=== PATIENT | male | born 1940 | race Caucasian/White ===

== ENCOUNTER 2023-03-14 10:27 | Outpatient (AMB) | payer OTHER, SELFPAY ==
[2023-03-14 10:39] VITALS: BP 140/60; PULSE 65; O2SAT 96; BMI 29.0
--- NOTE | 2023-03-14 10:39 | MHC.PC.OV ---
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 Transferring care from Dr. José Miguel Case. Returning back to the state from [place] after 30 years.Medical records have been requested and have been received. Phlebotomist Lab Assistant Required: No Accompanied by: Self / Same As Patient Allergies No Known Allergies Allergy (Verified 03/14/23 10:51) Medication List - Last Reconciled 03/14/23 by Julián Umanzor PA-C cholecalciferol (vitamin D3) (Vitamin D3) 50 mcg PO DAILY dorzolamide-timolol 22.3-6.8 mg/mL 1 drp ophthalmic (eye) doxazosin 4 mg PO BEDTIME finasteride 5 mg PO DAILY irbesartan 150 mg PO DAILY latanoprost 0.005% 1 drp ophthalmic (eye) QPM mirtazapine 15 mg PO BEDTIME netarsudil-latanoprost 0.02-0.005 % (Rocklatan) drps ophthalmic (eye) pravastatin 20 mg PO DAILY Tobacco use date assessed: 03/14/23 Fall risk assessment: No Falls in past year Last assessed Fall Risk: 03/14/23 Dental Screening Dental Screen Date: 03/14/23 Did you have a dental visit in the last 12 months?: No Did you have a dental problem in the last 6 months where you did not have access to dental care?: No Was dental information given to patient?: No (Upper Dentures) HPI New patient-Requesting physical HPI Details Patient is an 83-year-old male here today for a new patient visit/ Annual physical. Patient previous PCP was at [place]. Recently moved here from [place]. Patient has a past medical history significant for hypertension, GLaucoma, ALESSANDRA hyperlipidemia, BPH, pulmonary emphysema, major depressive disorder. .. Hypertension: Blood pressure slightly elevated today in office, he believes is due to being a bit anxious coming into the office today. .. Glaucoma: following an hydroponics grower in on multiple drops for his glaucoma. .. COPD: Was a former smoker though quit 20 years ago. He reports he was a 30 pack year smoker. He denies any exacerbations or coughing fits. Does have some shortness of breath on exertion at times though relates this to his pain in his lower back when ambulating. .. Hyperlipidemia: Continues on pravastatin 20 mg without side effect. Will recheck fasting lipids to assure appropriate total cholesterol and LDL. .. Obstructive sleep apnea: Uses CPAP machine quite regularly. Does use mirtazapine at night to help him fall asleep. He generally does not have a diagnosis of depression. .. Lumbar spine pain(chronic)- has had chronic lumbar spine issues for the past several years. Does use a stand-up walker that significantly helps reduce his pain while ambulating. He reports he has done physical therapy and tried injections in the past though have not been helpful. He is satisfied with using stand-up walker. He is interested in handicap placard through the [facility] Vaccines: Up-to-date with pneumonia, COVID, flu vaccines, needs td. Colon cancer screening: reports he got a colon done at age 75 which was normal. t [facility] Medical History (Updated 03/14/23 @ 12:30 by Julián Umanzor PA-C) Skin cancer Hearing problem Hypertension Depression COPD (chronic obstructive pulmonary disease) Chronic back pain Social History Housing: Apartment Patient Tobacco Use Status: Former Tobacco user (years since quitting-37 years) Quit Date: 1986 Tobacco use type: Cigarette e-Cigarette/Vaping Use: Never Used service: Yes Current occupational status: retired Cognitive needs: No Hearing needs: Yes (hearing problems from both ears.) Vision needs: Yes Questionnaire PHQ-9 Over the last 2 weeks, how often have you been bothered by any of the following problems? 1. Little interest or pleasure in doing things: not at all 2. Feeling down, depressed, or hopeless: not at all 3. Trouble falling or staying asleep, or sleeping too much: not at all 4. Feeling tired or having little energy: not at all 5. Poor appetite or overeating: not at all 6. Feeling bad about yourself - or that you are a failure or have let yourself or your family down: not at all 7. Trouble concentrating on things, such as reading the newspaper or watching television: not at all 8. Moving or speaking so slowly that other people could have noticed. Or the opposite - being so fidgety or restless that you have been moving around a lot more than usual: not at all 9. Thoughts that you would be better off or of hurting yourself in some way: not at all Total score: 0 Depression Screening Interpretation: Negative Depression Screening Done: Yes [id number] - PHQ-9 Billing: Yes Source: Developed by Drs. Vinnie Hatch, Dai Buckley, Devan Malave and colleagues, with an educational reg from [employer]. Thrive Questionnaire Date Thrive assessed: 03/14/23 I am a: Patient What is your living situation today?: I have a steady place to live Within the past 12 months, did the food you bought not last and you didn't have the money to get more?: Never true Within the past 12 months, did you worry whether your food would run out before you got money to buy more?: Never true Do you have trouble paying for medicines?: No Do you have trouble getting transportation to medical appointments?: No Do you have trouble paying your heating and electricity bill?: No Do you have trouble taking care of your child, family member or friend?: No Do you have trouble with day-to-day activities such as bathing, preparing meals, shopping, managing finances, etc.?: No Are you currently unemployed and looking for a job?: No Are you interested in more education?: No Please select the resources that you would like help with: None AUDIT C Alcohol Use Questionnaire (AUDIT-C) 1. How often do you have a drink containing alcohol?: Never 3. How often do you have six or more drinks on one occasion?: Never Total Score: 0 QUINCY-7 AMB Questionnaire QUINCY-7 Date QUINCY - 7 assessed: 03/14/23 Feeling nervous, anxious, or on edge: 0 = Not at all Not being able to stop or control worryin = Not at all Worrying too much about different things: 0 = Not at all Trouble relaxin = Not at all Being so restless that it is hard to sit still: 0 = Not at all Becoming easily annoyed or irritable: 0 = Not at all Feeling afraid as if something awful might happen: 0 = Not at all Total QUINCY-7 score (0-4 normal; 5-9 mild; 10-14 moderate; 15-21 severe): 0 Source: Developed by Drs. Vinnie Hatch, Dai Buckley, Devan Malave and colleagues, with an educational reg from [employer]. QUINCY-7 Assessment Billing QUINCY-7 Assessment Tool: QUINCY-7 Assessment 03302 Review of Systems Const Denies body aches, Denies chills, Denies excessive sweating, Denies fatigue, Denies fever(s) and Denies headache(s) Eyes Denies blurry vision ENT Denies dysphagia, Denies vertigo, Denies dizziness, Denies headache(s), Denies hearing loss and Denies tinnitus Card Denies chest pain, Denies chest pain with activity, Denies syncope, Denies irregular heart rhythm and Denies dyspnea Resp Denies chest congestion, Denies cough, Denies hemoptysis, Denies dyspnea and Denies wheezing GI Denies abdominal pain, Denies melena, Denies hematochezia, Denies coffee ground emesis, Denies dysphagia, Denies diarrhea, Denies nausea and Denies vomiting Denies difficulty urinating, Denies dysuria, Denies urinary frequency, Denies urinary hesitancy and Denies urinary urgency Musc Denies arthralgias, Denies limited range of motion, Denies muscle cramps and Denies muscle weakness Skin/Breast Denies rash and Denies skin ulcer Neuro Denies Abnormal speech present, Denies confusion, Denies vertigo, Denies dizziness, Denies syncope, Denies headache(s), Denies memory loss and Denies seizure-like activity Psych Denies anxiety, Denies confusion, Denies depression, Denies memory loss, Denies panic attacks and Denies paranoia Endo Denies excessive sweating, Denies fatigue, Denies flushing, Denies polydipsia and Denies polyuria Aller/Immun Denies wheezing Physical exam (Primary Care) Vital Signs: Last Vital Signs Pulse 65 03/14/23 10:39 BP 140/60 H 03/14/23 10:39 Pulse Ox 96 03/14/23 10:39 Oxygen Delivery Method Room Air 03/14/23 10:39 BMI result Body Mass Index 29.0 Tobacco/Smoking Status: Tobacco use Status Tobacco use date assessed 03/14/23 03/14/23 10:46 Patient Tobacco Use Status Former Tobacco user 03/14/23 10:46 e-Cigarette/Vaping Use Never Used 03/14/23 10:46 PHQ-9: PHQ-9 Score PHQ-9: Total score 0 03/14/23 10:49 Depression Screening Interpretation: Negative Thrive Assessment: Date of Thrive Assessment Date Thrive assessed 03/14/23 03/14/23 10:46 Const General: cooperative, comfortable, no acute distress, alert and awake; No confusion Orientation/consciousness: oriented to person, oriented to place, patient oriented x3 and No confusion HENMT Head: Yes normocephalic Ears: external ears normal and TM's normal bilaterally Face and sinus: No sinus tenderness Mouth: Normal oral and palatal mucosa present and tongue normal Teeth and gingiva: dentition normal and gingiva normal Throat: Yes posterior oropharynx normal, Yes tonsils normal and Yes uvula midline Eyes Conjunctivae: conjunctivae normal Sclerae: sclerae normal Pupils: Equal, round and reactive pupils present EOM: EOMs intact bilaterally Direct Ophthalmoscopy: No no photophobia Neck Neck: Yes no lymphadenopathy, No tender and Yes no JVD Thyroid: Thyroid normal Carotids: no bruits Chest Chest palpation & inspection: no tenderness Resp Effort & Inspection: normal respiratory effort, no audible wheezes, not labored and no stridor Auscultation: no crackles, no rales, no rhonchi and no wheezes Cardio Jugular venous distension: no JVD Rate: regular rate, not bradycardic and not tachycardic Rhythm: regular rhythm Bruits: no carotid bruits Peripheral pulses: Peripheral pulses 2+ throughout GI Inspection: Yes normal to inspection, No abdominal wall ecchymosis and No visible herniation Palpation (GI): Soft to palpation, nontender, no guarding, not rigid and No hepatosplenomegaly present Auscultation: normoactive bowel sounds General: Yes no CVA tenderness Back/Spine/Pelvis Back: no CVA tenderness and No back tenderness Cervical Spine: cervical ROM normal Thoracic/Lumbar Spine: thoracic and lumbar spine normal to inspection, straight leg raise negative bilaterally, No thoraco-lumbar ROM limited and No lumbar spinal tenderness Skin Lesions: no lesions Rashes: no rashes Wounds: no wounds Neuro General: oriented to person, oriented to place, patient oriented x3, CN's II-XI intact bilaterally and No confusion Cranial nerves: Yes Equal, round and reactive pupils present and Yes Normal accommodation reflex present Cognition (Neuro): normal cognition Speech: No Abnormal speech present Gait exam (Neuro): Normal gait present Motor exam (neuro): 5/5 motor strength present throughout Extrem Right upper extremity: full ROM; no cyanosis Left upper extremity: full ROM; no cyanosis Right lower extremity: no edema Left lower extremity: no edema Psych Appearance: grossly normal Mental Status: mental status grossly normal Affect: normal affect Attitude: cooperative Thought process: Normal thought process present Assessment and Plan Assessment & Plan (1) Annual physical exam: Code(s): Z00.00 - Encounter for general adult medical examination without abnormal findings (2) HLD (hyperlipidemia): Code(s): E78.5 - Hyperlipidemia, unspecified Qualifiers: Hyperlipidemia type: mixed hyperlipidemia Qualified Code(s): E78.2 - Mixed hyperlipidemia Plan: Will follow fasting lipid panel. Goal LDL to remain below 130. (3) BPH (benign prostatic hyperplasia): Code(s): N40.0 - Benign prostatic hyperplasia without lower urinary tract symptoms Qualifiers: Lower urinary tract symptom detail: unspecified Lower urinary tract symptom presence: symptoms present Qualified Code(s): N40.1 - Benign prostatic hyperplasia with lower urinary tract symptoms Plan: Does have some weak urinary stream. Does have family history of prostate cancer. Will check PSA regularly. (4) Glaucoma: Code(s): H40.9 - Unspecified glaucoma Qualifiers: Glaucoma type: unspecified Laterality: bilateral Qualified Code(s): H40.9 - Unspecified glaucoma Plan: Does follow an hydroponics grower and is on regular eyedrops. He does report since moving up from [place] he has bilateral eye blurriness and irritation. He believes he has something called dry eye . He will ask his hydroponics grower about this. (5) COPD (chronic obstructive pulmonary disease): Code(s): J44.9 - Chronic obstructive pulmonary disease, unspecified Qualifiers: COPD type: emphysema Emphysema type: centrilobular Qualified Code(s): J43.2 - Centrilobular emphysema Plan: Was a former smoker. Does not use any inhalers at this time. (6) Hypertension: Code(s): I10 - Essential (primary) hypertension Qualifiers: Hypertension type: primary hypertension Qualified Code(s): I10 - Essential (primary) hypertension Plan: Patient's blood pressure slightly elevated today in office. Advised to continue monitoring blood pressure at home and if consistently above 140/90 will consider adding hydrochlorothiazide to his blood pressure med regime. (7) Lumbar disc disease: Code(s): M51.9 - Unspecified thoracic, thoracolumbar and lumbosacral intervertebral disc disorder Plan: As per HPI has a chronic history of lumbar disc disease and arthritis. Does use a stand-up walker to help assist him in ambulation. He has not interested in further evaluation or treatment of his lumbar spine disease. (8) ALESSANDRA (obstructive sleep apnea): Code(s): G47.33 - Obstructive sleep apnea (adult) (pediatric) Plan: Was diagnosed with obstructive sleep apnea 60 years ago. Regularly uses a CPAP machine though somewhat bothered by the mass. He wonders if he can get off using his CPAP machine as he has lost significant amount of weight since his original diagnosis with obstructive sleep apnea. Orders: Orders Prostate Specific Antigen Scr Today N40.1 - Benign prostatic hyperplasia with lower urinary tract symptoms, Z12.5 - Encounter for screening for malignant neoplasm of prostate Comprehensive [place]. Panel Fast Today I10 - Essential (primary) hypertension Microalbumin, Random (w Creat) Today I10 - Essential (primary) hypertension Lipid Panel Today E78.2 - Mixed hyperlipidemia Coding Level of Care Code New Pt Prev Care >65yr (36628) Diagnoses Annual physical exam Z00.00 Mixed hyperlipidemia E78.2 Hyperlipidemia type: mixed hyperlipidemia Benign prostatic hyperplasia with lower urinary tract symptoms, symptom details unspecified N40.1 Lower urinary tract symptom detail: unspecified Lower urinary tract symptom presence: symptoms present Glaucoma of both eyes, unspecified glaucoma type H40.9 Glaucoma type: unspecified Laterality: bilateral Centrilobular emphysema J43.2 COPD type: emphysema Emphysema type: centrilobular Primary hypertension I10 Hypertension type: primary hypertension Lumbar disc disease M51.9 ALESSANDRA (obstructive sleep apnea) G47.33 Additional Codes QUINCY-7 Assessment Billing - QUINCY-7 Assessment Tool: QUINCY-7 Assessment [id number] ([id number])
== END 2023-03-14 11:33 | disposition home or self-care (01) ==
PROVIDERS: PCP Physician Assistant; Visit Provider Physician Assistant
DX: Z00.00 Encounter for general adult medical examination without abnormal findings (principal); J43.2 Centrilobular emphysema; E78.2 Mixed hyperlipidemia; N40.1 Benign prostatic hyperplasia with lower urinary tract symptoms; H40.9 Unspecified glaucoma; I10 Essential (primary) hypertension; M51.9 Unspecified thoracic, thoracolumbar and lumbosacral intervertebral disc disorder; G47.33 Obstructive sleep apnea (adult) (pediatric)
CPT/HCPCS: 99387

== ENCOUNTER 2023-07-03 06:22 | Outpatient (REF) | payer OTHER, SELFPAY ==
[2023-07-03 08:27] LABS: Alanine Aminotransferase 15 U/L (0-40); Albumin Level 3.6 g/dL (3.5-5.0); Alkaline Phosphatase 97 U/L (39-117); Anion Gap 12 (12-20); Aspartate Amino Transferase 23 U/L (5-37); Bilirubin Total 0.5 mg/dL (0.0-1.0); Blood Urea Nitrogen 24 mg/dL (9-16); Calcium 9.6 mg/dL (8.4-10.2); Carbon Dioxide 26 mmol/L (22-29); Chloride 110 mmol/L (96-108); Cholesterol 105 mg/dL (<200); Estimated Glomerular Filt Rate > 60; Glucose Fasting 92 mg/dL (60-99); HDL Cholesterol 42 mg/dL (>40); LDL Cholesterol Calculated 52 mg/dL (<100); Potassium 3.8 mmol/L (3.3-5.1); Sodium 144 mmol/L (135-145); Total Protein 6.3 g/dL (6.5-8.0); Triglycerides 57 mg/dL (<150)
[2023-07-03 08:40] LABS: Prostate Specific Antigen Scr 0.91 ng/mL (<0.05-4.0)
[2023-07-03 09:01] LABS: Creatinine Urine 75.18 mg/dL; Microalbumin Urine < 5.0 mg/L
== END 2023-07-03 06:23 | disposition home or self-care (01) ==
LOC: HO.LAB 06:22
PROVIDERS: PCP Physician Assistant; Visit Provider Physician Assistant
DX: Z12.5 Encounter for screening for malignant neoplasm of prostate (principal); N40.1 Benign prostatic hyperplasia with lower urinary tract symptoms; I10 Essential (primary) hypertension; E78.2 Mixed hyperlipidemia
CPT/HCPCS: 36415; 80053; 80061; 82043; 82570; 84153

== ENCOUNTER 2023-07-13 09:33 | Outpatient (AMB) | payer OTHER, SELFPAY ==
[2023-07-13 09:49] VITALS: BP 140/64; PULSE 55; O2SAT 96; BMI 27.0
--- NOTE | 2023-07-13 09:49 | MHC.PC.OV ---
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 Accompanied by: Self / Same As Patient Allergies No Known Allergies Allergy (Verified 07/13/23 10:06) Medication List - Last Reconciled 07/13/23 by Julián Umanzor PA-C cholecalciferol (vitamin D3) (Vitamin D3) 50 mcg PO DAILY dorzolamide-timolol 22.3-6.8 mg/mL 1 drp ophthalmic (eye) doxazosin 4 mg PO BEDTIME finasteride 5 mg PO DAILY irbesartan 150 mg PO DAILY latanoprost 0.005% 1 drp ophthalmic (eye) QPM mirtazapine 15 mg PO BEDTIME netarsudil-latanoprost 0.02-0.005 % (Rocklatan) drps ophthalmic (eye) pravastatin 20 mg PO DAILY Tobacco use date assessed: 03/14/23 Fall risk assessment: No Falls in past year Last assessed Fall Risk: 07/13/23 Dental Screening Dental Screen Date: 03/14/23 HPI f/u HTN/ ALESSANDRA/ HPI Details Patient is an 83-year-old male here today for a follow-up visit. Patient previous PCP was at [facility]. . Patient has a past medical history significant for hypertension, GLaucoma, ALESSANDRA hyperlipidemia, BPH, pulmonary emphysema, major depressive disorder. Has lost another 12 lb since last office visit intentionally via dietary modifications. .. Hypertension: Blood pressure slightly elevated today in office, he believes is due to being a bit anxious coming into the office today. .. Glaucoma: following an correctional food service supervisor in on multiple drops for his glaucoma. .. COPD: Was a former smoker though quit 20 years ago. He reports he was a 30 pack year smoker. He denies any exacerbations or coughing fits. Does have some shortness of breath on exertion at times though relates this to his pain in his lower back when ambulating. .. Hyperlipidemia: Continues on pravastatin 20 mg without side effect. Will recheck fasting lipids to assure appropriate total cholesterol and LDL. .. Obstructive sleep apnea: Uses CPAP machine quite regularly. Does use mirtazapine at night to help him fall asleep. He generally does not have a diagnosis of depression. .. Lumbar spine pain(chronic)- has had chronic lumbar spine issues for the past several years. Does use a stand-up walker that significantly helps reduce his pain while ambulating. He reports he has done physical therapy and tried injections in the past though have not been helpful. He is satisfied with using stand-up walker. He is interested in handicap placard through the [facility]. Laboratory Tests 07/03/23 07/03/23 06:39 07:21 Creatinine 0.87 Cholesterol 105 PSA Screen 0.91 Urine Microalbumin < 5.0 PFS Medical History (Updated 03/14/23 @ 12:30 by Julián Umanzor PA-C) Skin cancer Hearing problem Hypertension Depression COPD (chronic obstructive pulmonary disease) Chronic back pain Social History Housing: Apartment Patient Tobacco Use Status: Former Tobacco user (years since quitting-37 years) Quit Date: 1986 Tobacco use type: Cigarette e-Cigarette/Vaping Use: Never Used service: Yes Current occupational status: retired Cognitive needs: No Hearing needs: Yes (hearing problems from both ears.) Vision needs: Yes Questionnaire Thrive Questionnaire Date Thrive assessed: 03/14/23 QUINCY-7 AMB Questionnaire QUINCY-7 Date QUINCY - 7 assessed: 03/14/23 Source: Developed by Drs. Vinnie Hatch, Dai Buckley, Devan Malave and colleagues, with an educational reg from [employer]. Review of Systems Const Denies headache(s) Eyes Denies loss of vision ENT Denies vertigo, Denies dizziness, Denies headache(s) and Denies sore throat Card Denies chest pain, Denies leg edema and Denies lightheadedness Resp Denies cough, Denies hemoptysis and Denies wheezing GI Denies abdominal pain, Denies melena, Denies constipation, Denies diarrhea and Denies vomiting Denies dysuria, Denies urinary frequency and Denies urinary urgency Musc Denies arthralgias, Denies joint swelling, Denies numbness and Denies tingling Neuro Denies Abnormal speech present, Denies behavioral changes, Denies vertigo, Denies dizziness, Denies headache(s), Denies loss of vision, Denies memory loss, Denies numbness and Denies tingling Psych Denies anxiety, Denies behavioral changes, Denies depression, Denies memory loss and Denies panic attacks Mannie/Lymph Denies easy bleeding and Denies easy bruising Aller/Immun Denies wheezing Physical exam (Primary Care) Vital Signs: Last Vital Signs Pulse 55 07/13/23 09:49 BP 140/64 H 07/13/23 09:49 Pulse Ox 96 07/13/23 09:49 Oxygen Delivery Method Room Air 07/13/23 09:49 BMI result Body Mass Index 27.0 Tobacco/Smoking Status: Tobacco use Status Tobacco use date assessed 03/14/23 07/13/23 09:49 Patient Tobacco Use Status Former Tobacco user (years 07/13/23 09:49 since quitting-37 years) Tobacco use type Cigarette 07/13/23 09:49 e-Cigarette/Vaping Use Never Used 07/13/23 09:49 Thrive Assessment: Date of Thrive Assessment Date Thrive assessed 03/14/23 07/13/23 09:49 Const General: healthy appearing, no acute distress, alert and awake Nutritional Appearance: well nourished Orientation/consciousness: oriented to person, oriented to place and oriented to time HENMT Ears: TM's normal bilaterally General nose exam: Normal nasal mucous membranes and turbinates present Eyes Conjunctivae: conjunctivae normal Sclerae: sclerae normal Pupils: Equal, round and reactive pupils present Neck Neck: Yes no lymphadenopathy and Yes no JVD Thyroid: Thyroid normal Carotids: no bruits Resp Effort & Inspection: normal respiratory effort and not tachypneic Auscultation: no crackles, no rales, no rhonchi and no wheezes Cardio Rate: regular rate Rhythm: regular rhythm Heart sounds: no murmurs and normal S1 and S2 GI Palpation (GI): Soft to palpation, nontender, no hepatomegaly and no splenomegaly Auscultation: normal bowel sounds Skin General skin exam: no rashes or lesions noted and dry skin Neuro General: oriented to person, oriented to place and oriented to time Cranial nerves: Yes Equal, round and reactive pupils present Speech: No Abnormal speech present Gait exam (Neuro): Normal gait present Motor exam (neuro): no tremor noted Extrem Right upper extremity: full ROM Left upper extremity: full ROM Right lower extremity: full ROM; no edema Left lower extremity: full ROM; no edema Psych Mental Status: mental status grossly normal Speech and movement: Normal speech and movement present Affect: normal affect Attitude: cooperative Thought process: Normal thought process present Assessment and Plan Assessment & Plan (1) HLD (hyperlipidemia): Code(s): E78.5 - Hyperlipidemia, unspecified Qualifiers: Hyperlipidemia type: mixed hyperlipidemia Qualified Code(s): E78.2 - Mixed hyperlipidemia Plan: Most recent fasting lipid panel showing excellent control with total cholesterol and LDL. Goal LDL to remain below 130. (2) Hypertension: Code(s): I10 - Essential (primary) hypertension Qualifiers: Hypertension type: primary hypertension Qualified Code(s): I10 - Essential (primary) hypertension Plan: Patient's blood pressure slightly elevated today in office. Advised to continue monitoring blood pressure at home and if consistently above 140/90 will consider adding hydrochlorothiazide to his blood pressure med regime. (3) BPH (benign prostatic hyperplasia): Code(s): N40.0 - Benign prostatic hyperplasia without lower urinary tract symptoms Qualifiers: Lower urinary tract symptom detail: unspecified Lower urinary tract symptom presence: symptoms present Qualified Code(s): N40.1 - Benign prostatic hyperplasia with lower urinary tract symptoms Plan: Does have some weak urinary stream. Most recent PSA normal.. Does have family history of prostate cancer. Will check PSA regularly. (4) Glaucoma: Code(s): H40.9 - Unspecified glaucoma Qualifiers: Glaucoma type: unspecified Laterality: bilateral Qualified Code(s): H40.9 - Unspecified glaucoma Plan: Does follow an correctional food service supervisor and is on regular eyedrops. He does report since moving up from [place] he has bilateral eye blurriness and irritation. He believes he has something called dry eye . He has establish care with an correctional food service supervisor here in [place]. (5) COPD (chronic obstructive pulmonary disease): Code(s): J44.9 - Chronic obstructive pulmonary disease, unspecified Qualifiers: COPD type: emphysema Emphysema type: centrilobular Qualified Code(s): J43.2 - Centrilobular emphysema Plan: Was a former smoker. Does not use any inhalers at this time. Does not report any shortness a breath or cough. 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 Does use a stand-up walker to help assist him in ambulation. He has not interested in further evaluation or treatment of his lumbar spine disease. (7) ALESSANDRA (obstructive sleep apnea): Code(s): G47.33 - Obstructive sleep apnea (adult) (pediatric) Plan: Was diagnosed with obstructive sleep apnea 60 years ago. Regularly uses a CPAP machine though somewhat bothered by the mass. He wonders if he can get off using his CPAP machine as he has lost significant amount of weight since his original diagnosis with obstructive sleep apnea. He will call in August of 2023 for repeat sleep study to see if he still has the diagnosis of obstructive sleep apnea. Orders: Orders Complete Blood Count no Diff 6 Months J43.2 - Centrilobular emphysema Comprehensive [place]. Panel Fast 6 Months I10 - Essential (primary) hypertension Lipid Panel 6 Months E78.2 - Mixed hyperlipidemia Medications: Changed From doxazosin 4 mg PO BEDTIME N40.1 - Benign prostatic hyperplasia with lower urinary tract symptoms To doxazosin 4 mg PO BEDTIME 90 tabs 1RF 90 days N40.1 - Benign prostatic hyperplasia with lower urinary tract symptoms From finasteride 5 mg PO DAILY N40.1 - Benign prostatic hyperplasia with lower urinary tract symptoms To finasteride 5 mg PO DAILY 90 tabs 1RF 90 days N40.1 - Benign prostatic hyperplasia with lower urinary tract symptoms From irbesartan 150 mg PO DAILY I10 - Essential (primary) hypertension To irbesartan 150 mg PO DAILY 90 tabs 1RF 90 days I10 - Essential (primary) hypertension From mirtazapine 15 mg PO BEDTIME G47.33 - Obstructive sleep apnea (adult) (pediatric) To mirtazapine 15 mg PO BEDTIME 90 tabs 1RF 90 days G47.33 - Obstructive sleep apnea (adult) (pediatric) From cholecalciferol (vitamin D3) (Vitamin D3) 50 mcg PO DAILY J43.2 - Centrilobular emphysema To cholecalciferol (vitamin D3) (Vitamin D3) 50 mcg PO DAILY 90 tabs 1RF 90 days J43.2 - Centrilobular emphysema Refilled pravastatin 20 mg PO DAILY 90 tabs 1RF E78.2 - Mixed hyperlipidemia Patient Instructions: Goal: Blood pressure to remain below 140/90, LDL goal to be below 130 Barriers: Adherence to physical activity Coding Level of Care Code Est Pt Level 4 (03482) Diagnoses Mixed hyperlipidemia E78.2 Hyperlipidemia type: mixed hyperlipidemia Primary hypertension I10 Hypertension type: primary hypertension Benign prostatic hyperplasia with lower urinary tract symptoms, symptom details unspecified N40.1 Lower urinary tract symptom detail: unspecified Lower urinary tract symptom presence: symptoms present Glaucoma of both eyes, unspecified glaucoma type H40.9 Glaucoma type: unspecified Laterality: bilateral Centrilobular emphysema J43.2 COPD type: emphysema Emphysema type: centrilobular Lumbar disc disease M51.9 ALESSANDRA (obstructive sleep apnea) G47.33
== END 2023-07-13 10:21 | disposition home or self-care (01) ==
PROVIDERS: PCP Physician Assistant; Visit Provider Physician Assistant
DX: E78.2 Mixed hyperlipidemia (principal); J43.2 Centrilobular emphysema; I10 Essential (primary) hypertension; N40.1 Benign prostatic hyperplasia with lower urinary tract symptoms; H40.9 Unspecified glaucoma; M51.9 Unspecified thoracic, thoracolumbar and lumbosacral intervertebral disc disorder; G47.33 Obstructive sleep apnea (adult) (pediatric)
CPT/HCPCS: 99214

== ENCOUNTER 2024-01-09 06:02 | Outpatient (REF) | payer OTHER, SELFPAY ==
[2024-01-09 07:06] LABS: Hematocrit 39.8 % (42.0-52.0); Hemoglobin 12.9 g/dl (14.0-18.0); Mean Corpuscular HGB Conc 32.4 g/dl (31.0-36.0); Mean Corpuscular Hemoglobin 31.1 pg (27.0-33.0); Mean Corpuscular Volume 95.9 fL (80.0-98.0); Mean Platelet Volume 11.1 fL (9.4-12.4); Platelet Count 135 X10*3/uL (160-400); Red Blood Count 4.15 X10*6/uL (4.60-5.80); Red Cell Distribution Width 14.5 % (11.0-16.0); White Blood Count 5.3 X10*3/uL (4.8-10.8)
[2024-01-09 07:35] LABS: Alanine Aminotransferase 20 U/L (0-40); Albumin Level 3.5 g/dL (3.5-5.0); Alkaline Phosphatase 108 U/L (39-117); Anion Gap 10 (12-20); Aspartate Amino Transferase 33 U/L (5-37); Bilirubin Total 0.5 mg/dL (0.0-1.0); Blood Urea Nitrogen 31 mg/dL (9-16); Calcium 8.6 mg/dL (8.4-10.2); Carbon Dioxide 25 mmol/L (22-29); Chloride 111 mmol/L (96-108); Cholesterol 115 mg/dL (<200); Estimated Glomerular Filt Rate > 60; Glucose Fasting 93 mg/dL (60-99); HDL Cholesterol 50 mg/dL (>40); LDL Cholesterol Calculated 56 mg/dL (<100); Potassium 4.1 mmol/L (3.3-5.1); Sodium 142 mmol/L (135-145); Total Protein 6.5 g/dL (6.5-8.0); Triglycerides 49 mg/dL (<150)
== END 2024-01-09 06:03 | disposition home or self-care (01) ==
LOC: HO.LAB 06:02
PROVIDERS: PCP Physician Assistant; Visit Provider Physician Assistant
DX: J43.2 Centrilobular emphysema (principal); I10 Essential (primary) hypertension; E78.2 Mixed hyperlipidemia
CPT/HCPCS: 36415; 80053; 80061; 85027

== ENCOUNTER 2024-01-15 10:42 | Outpatient (AMB) | payer OTHER, SELFPAY ==
--- NOTE | 2024-01-15 10:47 | MHC.PC.OV ---
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: No Accompanied by: Self / Same As Patient Allergies No Known Allergies Allergy (Verified 01/15/24 10:55) Medication List - Last Reconciled 01/15/24 by Julián Umanzor PA-C cholecalciferol (vitamin D3) (Vitamin D3) 50 mcg PO DAILY 90 days dorzolamide-timolol 22.3-6.8 mg/mL 1 drp ophthalmic (eye) doxazosin 4 mg PO TID 90 days finasteride 5 mg PO DAILY 90 days irbesartan 150 mg PO DAILY 90 days latanoprost 0.005% 1 drp ophthalmic (eye) QPM mirtazapine 15 mg PO BEDTIME 90 days netarsudil-latanoprost 0.02-0.005 % (Rocklatan) drps ophthalmic (eye) pravastatin 20 mg PO DAILY Tobacco use date assessed: 03/14/23 Dental Screening Dental Screen Date: 03/14/23 HPI f/u HTN / HLD/ ALESSANDRA HPI Details Patient is an 83-year-old male here today for a follow-up visit. Patient previous PCP was at [facility]. . Patient has a past medical history significant for hypertension, GLaucoma, ALESSANDRA hyperlipidemia, BPH, pulmonary emphysema, major depressive disorder. Has lost more weight since last office visit intentionally. .. Hypertension: Blood pressure stable today in office, he believes is due to being a bit anxious coming into the office today. .. 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 .. COPD: Was a former smoker though quit 20 years ago. He reports he was a 30 pack year smoker. He denies any exacerbations or coughing fits. Does have some shortness of breath on exertion at times though relates this to his pain in his lower back when ambulating. .. Hyperlipidemia: Continues on pravastatin 20 mg without side effect. Will recheck fasting lipids to assure appropriate total cholesterol and LDL. .. Obstructive sleep apnea: Uses CPAP machine quite regularly. Does use mirtazapine at night to help him fall asleep. He generally does not have a diagnosis of depression. .. Lumbar spine pain(chronic)- has had chronic lumbar spine issues for the past several years. Does use a stand-up walker that significantly helps reduce his pain while ambulating. He reports he has done physical therapy and tried injections in the past though have not been helpful. He is satisfied with using stand-up walker. Laboratory Tests 01/09/24 06:16 RBC 4.15 L Hgb 12.9 L Creatinine 0.80 Cholesterol 115 LDL Cholesterol, C alc 56 [facility] Medical History (Updated 01/15/24 @ 11:05 by Julián Umanzor PA-C) Skin cancer Hearing problem Hypertension Depression COPD (chronic obstructive pulmonary disease) Chronic back pain Social History Housing: Apartment Patient Tobacco Use Status: Former Tobacco user (years since quitting-37 years) Tobacco use type: Cigarette e-Cigarette/Vaping Use: Never Used service: Yes Current occupational status: retired Cognitive needs: No Hearing needs: Yes (hearing problems from both ears.) Vision needs: Yes Questionnaire Thrive Questionnaire Date Thrive assessed: 03/14/23 QUINCY-7 AMB Questionnaire QUINCY-7 Date QUINCY - 7 assessed: 03/14/23 Source: Developed by Drs. Vinnie Hatch, Dai Buckley, Devan Malave and colleagues, with an educational reg from [employer]. Review of Systems Const Denies headache(s) Eyes Denies loss of vision ENT Denies vertigo, Denies dizziness, Denies headache(s) and Denies sore throat Card Denies chest pain, Denies leg edema and Denies lightheadedness Resp Denies cough, Denies hemoptysis and Denies wheezing GI Denies abdominal pain, Denies melena, Denies constipation, Denies diarrhea and Denies vomiting Denies dysuria, Denies urinary frequency and Denies urinary urgency Musc Denies arthralgias, Denies joint swelling, Denies numbness and Denies tingling Neuro Denies Abnormal speech present, Denies behavioral changes, Denies vertigo, Denies dizziness, Denies headache(s), Denies loss of vision, Denies memory loss, Denies numbness and Denies tingling Psych Denies anxiety, Denies behavioral changes, Denies depression, Denies memory loss and Denies panic attacks Mannie/Lymph Denies easy bleeding and Denies easy bruising Aller/Immun Denies wheezing Physical exam (Primary Care) Vital Signs: Last Vital Signs Pulse 74 01/15/24 10:52 BP 130/52 L 01/15/24 10:52 Pulse Ox 98 01/15/24 10:52 Oxygen Delivery Method Room Air 01/15/24 10:52 BMI result Body Mass Index 25.2 Tobacco/Smoking Status: Tobacco use Status Tobacco use date assessed 03/14/23 01/15/24 10:47 Patient Tobacco Use Status Former Tobacco user (years 01/15/24 10:47 since quitting-37 years) Tobacco use type Cigarette 01/15/24 10:47 e-Cigarette/Vaping Use Never Used 01/15/24 10:47 Thrive Assessment: Date of Thrive Assessment Date Thrive assessed 03/14/23 01/15/24 10:47 Const General: healthy appearing, no acute distress, alert and awake Nutritional Appearance: well nourished Orientation/consciousness: oriented to person, oriented to place and oriented to time HENMT Ears: TM's normal bilaterally General nose exam: Normal nasal mucous membranes and turbinates present Eyes Conjunctivae: conjunctivae normal Sclerae: sclerae normal Pupils: Equal, round and reactive pupils present Neck Neck: Yes no lymphadenopathy and Yes no JVD Thyroid: Thyroid normal Carotids: no bruits Resp Effort & Inspection: normal respiratory effort and not tachypneic Auscultation: no crackles, no rales, no rhonchi and no wheezes Cardio Rate: regular rate Rhythm: regular rhythm Heart sounds: no murmurs and normal S1 and S2 GI Palpation (GI): Soft to palpation, nontender, no hepatomegaly and no splenomegaly Auscultation: normal bowel sounds Skin General skin exam: no rashes or lesions noted and dry skin Neuro General: oriented to person, oriented to place and oriented to time Cranial nerves: Yes Equal, round and reactive pupils present Speech: No Abnormal speech present Gait exam (Neuro): Normal gait present Motor exam (neuro): no tremor noted Extrem Right upper extremity: full ROM Left upper extremity: full ROM Right lower extremity: full ROM; no edema Left lower extremity: full ROM; no edema Psych Mental Status: mental status grossly normal Speech and movement: Normal speech and movement present Affect: normal affect Attitude: cooperative Thought process: Normal thought process present Coding Level of Care Code Est Pt Level 4 (73066) Diagnoses Mixed hyperlipidemia E78.2 Hyperlipidemia type: mixed hyperlipidemia Lumbar disc disease M51.9 Centrilobular emphysema J43.2 COPD type: emphysema Emphysema type: centrilobular Primary hypertension I10 Hypertension type: primary hypertension Anemia, unspecified type D64.9 Anemia type: unspecified type Assessment & Plan Assessment & Plan (1) HLD (hyperlipidemia): Code(s): E78.5 - Hyperlipidemia, unspecified Category: Medical Qualifiers: Hyperlipidemia type: mixed hyperlipidemia Qualified Code(s): E78.2 - Mixed hyperlipidemia Plan: Patient's most recent lipid panel showing excellent control of his total cholesterol and LDL. Will continue current statin therapy with goal LDL to remain below 100 (2) Lumbar disc disease: Code(s): M51.9 - Unspecified thoracic, thoracolumbar and lumbosacral intervertebral disc disorder Category: Medical Plan: Patient continues to have pretty significant lower lumbar spine pain. Has had several back injections and surgeries in the past. He manages with a specialized walker which gives him the ability to be much more mobile. (3) COPD (chronic obstructive pulmonary disease): Code(s): J44.9 - Chronic obstructive pulmonary disease, unspecified Category: Medical Qualifiers: COPD type: emphysema Emphysema type: centrilobular Qualified Code(s): J43.2 - Centrilobular emphysema Plan: Patient's COPD Has been well controlled. Has not had to use any albuterol or maintenance inhalers. (4) Hypertension: Code(s): I10 - Essential (primary) hypertension Category: Medical Qualifiers: Hypertension type: primary hypertension Qualified Code(s): I10 - Essential (primary) hypertension Plan: Patient's blood pressure acceptable today in office. Will continue his current dose of irbesartan with goal blood pressure to remain below 140/90 (5) Anemia: Code(s): D64.9 - Anemia, unspecified Category: Medical Qualifiers: Anemia type: unspecified type Qualified Code(s): D64.9 - Anemia, unspecified Plan: Noted slight anemia most recent labs. Most likely anemia of chronic disease. Will continue to follow CBC. Orders: Orders Lipid Panel Today E78.2 - Mixed hyperlipidemia Prostate Specific Antigen Scr Today N40.1 - Benign prostatic hyperplasia with lower urinary tract symptoms, Z12.5 - Encounter for screening for malignant neoplasm of prostate Microalbumin, Random (w Creat) Today I10 - Essential (primary) hypertension Vitamin B12 and Folate Today D64.9 - Anemia, unspecified, E53.8 - Deficiency of other specified B group vitamins IRON PROFILE Today D50.9 - Iron deficiency anemia, unspecified, D64.9 - Anemia, unspecified Comprehensive [place]. Panel Fast Today I10 - Essential (primary) hypertension Complete Blood Count no Diff Today D64.9 - Anemia, unspecified Medications: Refilled cholecalciferol (vitamin D3) (Vitamin D3) 50 mcg PO DAILY 90 tabs 1RF 90 days J43.2 - Centrilobular emphysema pravastatin 20 mg PO DAILY 90 tabs 1RF E78.2 - Mixed hyperlipidemia finasteride 5 mg PO DAILY 90 tabs 1RF 90 days N40.1 - Benign prostatic hyperplasia with lower urinary tract symptoms
[2024-01-15 10:52] VITALS: BP 130/52; PULSE 74; O2SAT 98; BMI 25.2
== END 2024-01-15 11:19 | disposition home or self-care (01) ==
PROVIDERS: PCP Physician Assistant; Visit Provider Physician Assistant
DX: E78.2 Mixed hyperlipidemia (principal); M51.9 Unspecified thoracic, thoracolumbar and lumbosacral intervertebral disc disorder; J43.2 Centrilobular emphysema; I10 Essential (primary) hypertension; D64.9 Anemia, unspecified

== ENCOUNTER → 2024-01-15 10:42 | Outpatient (BNVA) | payer OTHER, SELFPAY | PROVIDERS: PCP Physician Assistant; Visit Provider Physician Assistant ==

== ENCOUNTER 2024-04-01 15:47 | Outpatient (AMB) | payer OTHER, SELFPAY ==
--- NOTE | 2024-04-01 16:03 | A.OFFPC_ITS ---
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 Required: No Accompanied by: Spouse Allergies No Known Allergies Allergy (Verified 04/03/24 09:20) Medication List - Last Reconciled 04/01/24 by MANISHA Lopez cholecalciferol (vitamin D3) (Vitamin D3) 50 mcg PO DAILY 90 days dorzolamide-timolol 22.3-6.8 mg/mL 1 drp ophthalmic (eye) doxazosin 4 mg PO TID 90 days finasteride 5 mg PO DAILY 90 days irbesartan 150 mg PO DAILY 90 days latanoprost 0.005% 1 drp ophthalmic (eye) QPM mirtazapine 15 mg PO BEDTIME 90 days netarsudil-latanoprost 0.02-0.005 % (Rocklatan) drps ophthalmic (eye) pravastatin 20 mg PO DAILY Tobacco use date assessed: 04/01/24 Fall risk assessment: No Falls in past year Last assessed Fall Risk: 04/01/24 Dental Screening Dental Screen Date: 04/01/24 Did you have a dental visit in the last 12 months?: No Did you have a dental problem in the last 6 months where you did not have access to dental care?: No Was dental information given to patient?: Patient has dentist HPI Hernia in groin HPI Details The patient is an 84-year-old male with significant past medical history of ALESSANDRA, COPD, glaucoma, hypertension, BPH, hyperlipidemia, anemia and lumbar disc disease He is a patient of [facility] The patient is presenting today with concern of a bulge in his right groin Patient reports that on Monday he was doing some heavy lifting without any issues But during Monday night he started having a lot of pain and noticed a small bulge in his right groin Reports that the bulge goes away and comes back intermittently Reports that the pain got worse this morning after lifting a clothes basket, then the pain got better again The patient denies abdominal pain. Denies any new urinary symptoms. He reports that he urinate often due to his swollen prostate but nothing new was noted In the standing position a small bulge was noted in his right groin, no scrotal swelling noted Attempted to have the patient lie down on exam table to check of the bulge was reducible, but due to the patient's chronic back pain he was not able to tolerate this -will order an abdominal ultrasound and refer the patient to general surgery [facility] Medical History (Updated 04/03/24 @ 09:49 by Dion Ratliff MD) Reducible right inguinal hernia Skin cancer Hearing problem Hypertension Depression COPD (chronic obstructive pulmonary disease) Chronic back pain Surgical History (Updated 04/19/24 @ 09:47 by Jacquie Barnett [facility]) History of right inguinal hernia repair (~04/05/24) Hx of wisdom tooth extraction Hx of colonoscopy No pertinent past surgical history Social History Housing: Apartment Patient Tobacco Use Status: Former Tobacco user Tobacco use type: Cigarette e-Cigarette/Vaping Use: Never Used service: Yes Current occupational status: retired Cognitive needs: No Hearing needs: Yes (hearing problems from both ears.) Vision needs: Yes Questionnaire PHQ-9 Over the last 2 weeks, how often have you been bothered by any of the following problems? 1. Little interest or pleasure in doing things: not at all 2. Feeling down, depressed, or hopeless: not at all 3. Trouble falling or staying asleep, or sleeping too much: not at all 4. Feeling tired or having little energy: not at all 5. Poor appetite or overeating: not at all 6. Feeling bad about yourself - or that you are a failure or have let yourself or your family down: not at all 7. Trouble concentrating on things, such as reading the newspaper or watching television: not at all 8. Moving or speaking so slowly that other people could have noticed. Or the opposite - being so fidgety or restless that you have been moving around a lot more than usual: not at all 9. Thoughts that you would be better off or of hurting yourself in some way: not at all Total score: 0 Depression Screening Interpretation: Negative Depression Screening Done: Yes 20566 - PHQ-9 Billing: Yes Source: Developed by Drs. Vinnie Hatch, Dai Buckley, Devan Malave and colleagues, with an educational reg from [employer]. Thrive Questionnaire Date Thrive assessed: 04/01/24 I am a: Patient What is your living situation today?: I have a steady place to live Within the past 12 months, did the food you bought not last and you didn't have the money to get more?: Never true Within the past 12 months, did you worry whether your food would run out before you got money to buy more?: Never true Do you have trouble paying for medicines?: No Do you have trouble getting transportation to medical appointments?: No Do you have trouble paying your heating and electricity bill?: No Do you have trouble taking care of your child, family member or friend?: No Do you have trouble with day-to-day activities such as bathing, preparing meals, shopping, managing finances, etc.?: No Are you currently unemployed and looking for a job?: No Are you interested in more education?: No Please select the resources that you would like help with: None Currently or been in a relationship where the following occur: No concerns reported THRIVE Score: 0 AUDIT C Alcohol Use Questionnaire (AUDIT-C) 1. How often do you have a drink containing alcohol?: Never Total Score: 0 QUINCY-7 AMB Questionnaire QUINCY-7 Date QUINCY - 7 assessed: 04/01/24 Feeling nervous, anxious, or on edge: 0 = Not at all Not being able to stop or control worryin = Not at all Worrying too much about different things: 0 = Not at all Trouble relaxin = Not at all Being so restless that it is hard to sit still: 0 = Not at all Becoming easily annoyed or irritable: 0 = Not at all Feeling afraid as if something awful might happen: 0 = Not at all Total QUINCY-7 score (0-4 normal; 5-9 mild; 10-14 moderate; 15-21 severe): 0 Source: Developed by Drs. Vinnie Hatch, Dai Buckley, Devan Malave and colleagues, with an educational reg from [employer]. QUINCY-7 Assessment Billing QUINCY-7 Assessment Tool: QUINCY-7 Assessment 28857 Review of Systems Const Details: Denies chills, Denies fatigue, Denies fever(s), Denies headache(s) and Denies weakness HEENT Denies change in vision, Denies dizziness, Denies headache(s), Denies hearing loss, Denies nasal congestion, Denies sinus pain, Denies sinus pressure and Denies sore throat Card Denies chest pain, Denies lightheadedness, Denies dyspnea and Denies other (palpitations) Resp Denies cough, Denies dyspnea and Denies wheezing GI Denies abdominal pain, Denies melena, Denies hematochezia, Denies change in bowel habits, Denies dyspepsia and Denies nausea Other: +Right groin bulging, + intermittent right groin pain Denies hematuria and Denies dysuria, + urinary frequency (chronic, enlarged prostate) Musc Denies abnormal gait, + lumbar pain (chronic), Denies numbness and Denies tingling Skin/Breast Denies rash, Denies unusual bruising and Denies wounds Neuro Denies abnormal gait, Denies dizziness, Denies headache(s), Denies memory loss, Denies numbness, Denies Sensory deficit (Neuro), Denies tingling and Denies weakness Psych Denies anxiety, Denies depression and Denies memory loss Endo Denies cold intolerance, Denies fatigue, Denies heat intolerance, Denies polydipsia Mannie/Lymph Denies easy bleeding and Denies easy bruising Aller/Immun Denies wheezing Physical exam (Primary Care) Vital Signs: Last Vital Signs Pulse 72 04/01/24 16:06 BP 120/70 04/01/24 16:06 Pulse Ox 96 04/01/24 16:06 Oxygen Delivery Method Room Air 04/01/24 16:06 BMI result Body Mass Index 25.3 Tobacco/Smoking Status: Tobacco use Status Tobacco use date assessed 04/01/24 04/01/24 16:10 Patient Tobacco Use Status Former Tobacco user (years 04/01/24 16:10 since quitting-37 years) Tobacco use type Cigarette 04/01/24 16:10 e-Cigarette/Vaping Use Never Used 04/01/24 16:10 PHQ-9: PHQ-9 Score PHQ-9: Total score 0 04/01/24 19:42 Depression Screening Interpretation: Negative Thrive Assessment: Date of Thrive Assessment Date Thrive assessed 04/01/24 04/01/24 16:10 Currently or been in a relationship where the following occur: No concerns reported Const Other: General: no acute distress, well developed, alert and awake Nutritional Appearance: well nourished Orientation/consciousness: patient oriented x3 HENMT Head: Yes normocephalic and Yes atraumatic Ears: hearing grossly normal bilaterally and TM's normal bilaterally General nose exam: Normal external nose present and Normal nares present Pupils: Equal, round and reactive pupils present and Pupil accommodation reflex normal EOM: EOMs intact bilaterally Neck Neck: Yes normal visual inspection, Yes no lymphadenopathy Thyroid: Thyroid normal Resp Effort & Inspection: normal respiratory effort Auscultation: clear to auscultation bilaterally Cardio Rate: regular rate Rhythm: regular rhythm Heart sounds: S1 normal heart sound present, S2 normal heart sound present, no gallops, no murmurs and no rubs GI Palpation (GI): Abdomen is soft and nontender to palpation Auscultation: normal bowel sounds Other: Small right groin bulging consistent with right inguinal hernia General: Yes no CVA tenderness Back/Spine/Pelvis Back: no CVA tenderness Cervical Spine: cervical ROM normal and No Cervical spine tenderness Thoracic/Lumbar Spine: Lumbar tenderness Skin General: warm and dry. Normal skin color. Normal skin turgor Lesions: no lesions Nails: normal Neuro General: patient oriented x3, gait normal Cranial nerves: Yes Equal, round and reactive pupils present Cognition (Neuro): normal cognition Gait exam (Neuro): Uses 2 canes to balance Extrem General: Yes normal to inspection, No edema and No calf tenderness Psych Appearance: grossly normal Affect: normal affect Attitude: cooperative Thought process: Normal thought process present Coding Level of Care Code Est Pt Level 4 (55740) Diagnoses Unilateral recurrent inguinal hernia without obstruction or gangrene K40.91 Laterality: unilateral Obstruction and gangrene presence: without obstruction or gangrene Recurrence: recurrent Lumbar disc disease M51.9 Benign prostatic hyperplasia with lower urinary tract symptoms, symptom details unspecified N40.1 Lower urinary tract symptom detail: unspecified Lower urinary tract symptom presence: symptoms present Additional Codes QUINCY-7 Assessment Billing - QUICNY-7 Assessment Tool: QUINCY-7 Assessment 43411 ([id number]) PHQ-9 - 71463 - PHQ-9 Billing: Yes ([id number]) Time Spent (min) 29 Assessment & Plan Assessment & Plan (1) Inguinal hernia: Code(s): K40.90 - Unilateral inguinal hernia, without obstruction or gangrene, not specified as recurrent Category: Medical Qualifiers: Laterality: unilateral Obstruction and gangrene presence: without obstruction or gangrene Recurrence: recurrent Qualified Code(s): K40.91 - Unilateral inguinal hernia, without obstruction or gangrene, recurrent Plan: Reports bulging in right groin started on Monday night. Reports intermittently resolving and reappearing Right groin bulging consistent with right inguinal hernia Abdominal ultrasound ordered and the patient was referred to General surgery Discussed with the patient and that if his pain becomes severe he should go to the emergency room to prevent strangulation of his intestine (2) Lumbar disc disease: Code(s): M51.9 - Unspecified thoracic, thoracolumbar and lumbosacral intervertebral disc disorder Category: Medical Plan: Chronic lumbar disc disease. He was unable to lay flat on table to try and reduce his hernia Patient reports that he sleeps in a recliner chair due to his chronic back pain and usually uses a walker to ambulate (3) BPH (benign prostatic hyperplasia): Code(s): N40.0 - Benign prostatic hyperplasia without lower urinary tract symptoms Category: Medical Qualifiers: Lower urinary tract symptom detail: unspecified Lower urinary tract symptom presence: symptoms present Qualified Code(s): N40.1 - Benign prostatic hyperplasia with lower urinary tract symptoms Plan: Reports urinary frequency, but also reports that this is not new and it is due to his enlarged prostate The patient is currently on doxazosin 4 mg t.i.d. and finasteride 5 mg daily Follow up with Urology as scheduled Plan To return as scheduled in June 2024 for his annual physical examination with his PCP Orders: Orders US abdomen complete 04/01/24 K40.90 - Unilateral inguinal hernia, without obstruction or gangrene, not specified as recurrent Referrals General Surgery Referral K40.90 - Unilateral inguinal hernia, without obstruction or gangrene, not specified as recurrent
[2024-04-01 16:06] VITALS: BP 120/70; PULSE 72; O2SAT 96; BMI 25.3
== END 2024-04-01 16:54 | disposition home or self-care (01) ==
PROVIDERS: PCP Physician Assistant
DX: K40.91 Unilateral inguinal hernia, without obstruction or gangrene, recurrent (principal); M51.9 Unspecified thoracic, thoracolumbar and lumbosacral intervertebral disc disorder; N40.1 Benign prostatic hyperplasia with lower urinary tract symptoms

== ENCOUNTER → 2024-04-01 15:47 | Outpatient (BNVA) | payer OTHER, SELFPAY | PROVIDERS: PCP Physician Assistant | DX: K40.91 Unilateral inguinal hernia, without obstruction or gangrene, recurrent (principal); M51.9 Unspecified thoracic, thoracolumbar and lumbosacral intervertebral disc disorder; N40.1 Benign prostatic hyperplasia with lower urinary tract symptoms; R35.0 Frequency of micturition; Z79.899 Other long term (current) drug therapy | CPT/HCPCS: 96127 ==

== ENCOUNTER 2024-04-01 23:38 | Emergency (ER) | payer OTHER, SELFPAY ==
--- NOTE | ~2024-04-01 | CT_ITS ---
CLINICAL HISTORY: inguinal pain, r o incarcerated hernia CT abdomen and pelvis without contrast Comparison: None Findings: Emphysema in the partially imaged lung bases. Pulmonary nodule in the right middle lobe is partially imaged measuring up to 4 mm. Given the background emphysema, follow-up CT can be performed for further screening of the remainder of the lungs if not recently performed. Fluid attenuation in the caudate lobe compatible with a benign cyst. Cholelithiasis without CT evidence of acute cholecystitis. Multiple hypodensities in the kidneys, the larger of which measure fluid attenuation and are compatible with cysts, the smaller of which are too small for accurate characterization. There is a 4 mm right lower pole nonobstructing renal calculus. 3 mm left lower pole nonobstructing renal calculus. No hydronephrosis or hydroureter. Normal urinary bladder. Smooth thickening of the bilateral adrenal glands. 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 As with all adenomas, consider biochemical testing if there is concern for hyperfunction. Probable small hiatal hernia. Stomach is predominantly collapsed which limits assessment. Small bowel is nondilated. Appendix is not visualized, no secondary signs to suggest acute appendicitis. Large stool burden. Colonic diverticula without diverticulitis. Coarse calcifications of the prostate which is enlarged with median lobe hypertrophy. No lymphadenopathy. No free fluid or free air. Atherosclerotic calcifications of the abdominal aorta. Leftward scoliosis of the spine. Multilevel degenerative changes. Background osteopenia. Bilateral fat containing inguinal hernias. There is a loop of colon which is adjacent to the right inguinal hernia opening although not within the hernia proper. IMPRESSION: 1. No incarcerated hernia as clinically questioned. Bilateral fat containing inguinal hernias. There is a loop of colon which is adjacent to the right inguinal hernia opening although not within the hernia proper. 2. Nonobstructing bilateral renal calculi. 3. Cholelithiasis without CT evidence of acute cholecystitis. 4. Emphysema in the partially imaged lung bases. Pulmonary nodule in the right middle lobe is partially imaged measuring up to 4 mm. Given the background emphysema, follow-up CT can be performed for further screening of the remainder of the lungs if not performed within the past year. 5. 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 As with all adenomas, consider biochemical testing if there is concern for hyperfunction. 6. Additional findings as described. This document has been electronically signed by: Carol Brown MD on 04/02/2024 05:56:56
[2024-04-02 00:22] VITALS: BP 148/48; PULSE 54; RESP 18; TEMP 36.7; O2SAT 98; BMI 24.1
[2024-04-02 01:48] LABS: MANUAL DIFF FLAG NO
--- NOTE | 2024-04-02 01:51 | PC.NURSE ---
pt a&ox4, respirations even and unlabored. pt reporting increased abdominal pain, reports he was diagnosed with a hernia, has been having trouble with moving and ambulation and reports he was told to come get seen if this were to happen. pt denies n.v.d. 18G placed in left ac, labs obtained and sent.
[2024-04-02 01:52] LABS: Basophils Percent Auto 0.5 % (0-2); Eosinophils Absolute Auto 0.2 X10*3/uL (0.0-0.4); Eosinophils Percent Auto 2.4 % (0-4); Hemoglobin 13.3 g/dl (14.0-18.0); Imm Gran Abs Auto 0.02 X10*3/uL (0.00-0.03); Imm Gran Pct Auto 0.3 % (0.0-0.4); Lymphocytes Absolute Auto 1.5 X10*3/uL (1.2-4.9); Lymphocytes Percent Auto 23.9 % (20-40); Mean Corpuscular HGB Conc 34.1 g/dl (31.0-36.0); Mean Corpuscular Hemoglobin 31.3 pg (27.0-33.0); Mean Corpuscular Volume 91.8 fL (80.0-98.0); Mean Platelet Volume 10.8 fL (9.4-12.4); Monocytes Absolute Auto 0.6 X10*3/uL (0.1-1.2); Monocytes Percent Auto 9.7 % (2-11); Neutrophils Absolute Auto 3.9 x10*3/uL (2.0-8.3); Neutrophils Percent Auto 63.2 % (45-73); Platelet Count 124 X10*3/uL (160-400); Red Blood Count 4.25 X10*6/uL (4.60-5.80); Red Cell Distribution Width 13.9 % (11.0-16.0); White Blood Count 6.2 X10*3/uL (4.8-10.8)
[2024-04-02 01:58] LABS: INTERNATIONAL NORM RATIO 1.1 (0.9-1.1)
[2024-04-02 02:06] LABS: Lactic Acid 0.8 mmol/L (0.5-2.0)
[2024-04-02 02:12] LABS: Alanine Aminotransferase 18 U/L (0-40); Albumin Level 3.7 g/dL (3.5-5.0); Anion Gap 12 (12-20); Aspartate Amino Transferase 33 U/L (5-37); Bilirubin Total 0.5 mg/dL (0.0-1.0); Blood Urea Nitrogen 31 mg/dL (9-16); Calcium 9.2 mg/dL (8.4-10.2); Carbon Dioxide 24 mmol/L (22-29); Chloride 111 mmol/L (96-108); Creatinine Clr Calc Pharmacy 56.9; Estimated Glomerular Filt Rate > 60; Glucose Random 95 mg/dL (60-115); Lipase 24 U/L (8-78); Potassium 4.2 mmol/L (3.3-5.1); Sodium 143 mmol/L (135-145); Total Protein 7.1 g/dL (6.5-8.0)
[2024-04-02 02:39] LABS: Alkaline Phosphatase 97 U/L (39-117)
--- NOTE | 2024-04-02 04:43 | ED_ITS ---
HPI - General Adult General Chief complaint: General Medical Stated complaint: hernia was at pcp today Time Seen by Provider: 04/02/24 04:34 Source: patient and family Mode of arrival: ambulatory Limitations: no limitations History of Present Illness ED Provider: Dr. Fernanda Mooney HPI narrative: Patient comes to the emergency room complaining of right inguinal pain. Patient states that about a week ago, he has been doing some heavy lifting with projects at home. Patient states that since then he has noticed some swelling and bulging in his right inguinal area. Patient states that it is on and off. Patient called his PCP, patient has been him appointments pending. However, approximately 10 hours ago, the pain became persistent and last for about 8 hours, patient states that at this time he feels much better. Related Data Home Medications ?Medication ?Instructions ?Recorded ?Confirmed dorzolamide 22.3 mg-timolol 6.8 1 drp ophthalmic (eye) 03/14/23 04/01/24 mg/mL eye drops latanoprost 0.005 % eye drops 1 drp ophthalmic (eye) QPM 03/14/23 04/01/24 netarsudil 0.02 %-latanoprost drp ophthalmic (eye) 03/14/23 04/01/24 0.005 % eye drops ([place]) Previous Rx's ?Medication ?Instructions ?Recorded cholecalciferol (vitamin D3) 50 50 mcg PO DAILY 90 days #90 tabs 01/15/24 mcg (2,000 unit) tablet (Vitamin D3) finasteride 5 mg tablet 5 mg PO DAILY 90 days #90 tabs 01/15/24 mirtazapine 15 mg tablet 15 mg PO BEDTIME 90 days #90 tabs 01/29/24 doxazosin 4 mg tablet 4 mg PO TID 90 days #270 tabs 03/05/24 pravastatin 20 mg tablet 20 mg PO DAILY #90 tabs 03/12/24 irbesartan 150 mg tablet 150 mg PO DAILY 90 days #90 tabs 03/25/24 Allergies Allergy/AdvReac Type Severity Reaction Status Date / Time No Known Allergies Allergy Verified 04/02/24 00:25 Review of Systems 2 Review of Systems: Constitutional : No Weight loss, No Fever, No Chills, No Night Sweats, No Fatigue, No Malaise ENT/Mouth : No Hearing loss, No Ear Pain, No Nasal Congestion, No Sinus Pain, No Hoarseness, No sore throat, No Rhinorrhea, No Swallowing Difficulty Eyes: No Eye Pain, No Swelling, No Redness, No Foreign Body, No Discharge, No Vision Changes Cardiovascular : No Chest Pain, No SOB, No Dyspnea on Exertion, No Orthopnea, No Edema, No Palpitations Respiratory : No Cough, No Sputum, No Wheezing, No Smoke Exposure, No Dyspnea Gastrointestinal : No Nausea, No Vomiting, No Diarrhea, No Constipation, No abdominal Pain, No Hematochezia, No Melena, complaining of inguinal area pain. Genitourinary : no irregular bleeding, No Dysuria, No Urinary Frequency, No Hematuria, No Urinary Incontinence, No Urgency, No Flank Pain, No Urinary Flow Changes, No Hesitancy Musculoskeletal : No joint pain, No Myalgias, No Joint Swelling Skin : No Skin Lesions, No rash Neuro : No Weakness, No Numbness, No Paresthesias, No Loss of Consciousness, No Dizziness, No Headache Psych : No Anxiety/Panic, No Depression, No SI/HI/AH/VH, No Social Issues, Heme/Lymph: No Bruising, No Bleeding,No Lymphadenopathy Endocrine : No Polyuria, No Polydipsia, No Temperature Intolerance PMFSH Past Medical History Medical History Skin cancer Hearing problem Hypertension Depression COPD (chronic obstructive pulmonary disease) Chronic back pain Surgical History No pertinent past surgical history Social History Social History Housing: Apartment Patient Tobacco Use Status: Former Tobacco user Tobacco use type: Cigarette Smoked in Last 30 Days: No e-Cigarette/Vaping Use: Never Used Use of substances other than those prescribed or required for medical reasons: No Advance Directives: No Advance Directives Information Provided: Yes service: Yes Current occupational status: retired Cognitive needs: No Hearing needs: Yes (hearing problems from both ears.) Vision needs: Yes Physical Exam ED Vital Signs: Vital Signs - 24 hr 04/02/24 00:22 04/02/24 05:35 Temperature 98.0 F 97.5 F Pulse Rate 54 54 Respiratory Rate 18 18 Blood Pressure 148/48 H 139/59 L Pulse Oximetry 98 97 Oxygen Delivery Method Room Air Room Air BMI result Body Mass Index 24.1 Const Other: Appearance: Alert. Oriented X3. No acute distress. Eyes: Pupils equal, round and reactive to light. ENT: Pharynx normal. Neck: Normal inspection. Neck supple. No lymph nodes noted. No crepitus CVS: Normal heart rate and rhythm. Pulses normal. Normal S1 and S2 Respiratory: No respiratory distress. Breath sounds normal. No Wheezing. No rales Abdomen: Soft and nontender. No rigidity. No distention. Skin: Skin warm and dry. Normal skin color. Normal skin turgor. Extremities: No lower extremity edema. No Lacerations. No Rash Neuro: Oriented X 3. No motor deficit. No sensory deficit. Moving all extremities. No slurred speech. CN 2 through 12 grossly intact Psych: calm, cooperative, normal affect My interpretation of labs: No significant abnormality in patient's hematology or chemistry CT scan does not show any incarcerated hernia. Patient asymptomatic at this time, no pain Patient to follow-up with surgery Medical Decision Making Medical Decision Making [facility] Narrative: CT scan does not show acute abnormality, normal labs, needs follow-up with surgery Patient is stable at this time, asymptomatic Lab Data [facility] Lab Attestation statement: I reviewed the patient's lab results. 04/02/24 01:44 04/02/24 01:44 Labs: Lab Results 04/02/24 04/02/24 Range/Units 01:44 05:41 WBC 6.2 (4.8-10.8) X10*3/uL RBC 4.25 L (4.60-5.80) X10*6/uL Hgb 13.3 L (14.0-18.0) g/dl Hct 39.0 L (42.0-52.0) % MCV 91.8 (80.0-98.0) fL MCH 31.3 (27.0-33.0) pg MCHC 34.1 (31.0-36.0) g/dl RDW 13.9 (11.0-16.0) % Plt Count 124 L (160-400) X10*3/uL MPV 10.8 (9.4-12.4) fL Immature Gran % (Auto) 0.3 (0.0-0.4) % Neut % (Auto) 63.2 (45-73) % Lymph % (Auto) 23.9 (20-40) % [place] % (Auto) 9.7 (2-11) % Eos % (Auto) 2.4 (0-4) % Baso % (Auto) 0.5 (0-2) % Lymph # (Auto) 1.5 (1.2-4.9) X10*3/uL [place] # (Auto) 0.6 (0.1-1.2) X10*3/uL Eos # (Auto) 0.2 (0.0-0.4) X10*3/uL Baso # (Auto) 0.0 (0.0-0.2) X10*3/uL Abs Immat Gran (auto) 0.02 (0.00-0.03) X10*3/uL Absolute Neuts (auto) 3.9 (2.0-8.3) x10*3/uL Absolute Nucleated RBC 0.000 (0.0-0.012) X10*3/uL Nucleated RBC % (auto) 0.0 (0.0-0.2) /100WBC PT 13.0 H (10.9-12.4) SEC INR 1.1 (0.9-1.1) Sodium 143 (135-145) mmol/L Potassium 4.2 (3.3-5.1) mmol/L Chloride 111 H (96-108) mmol/L Carbon Dioxide 24 (22-29) mmol/L Anion Gap 12 (12-20) BUN 31 H (9-16) mg/dL Creatinine 0.84 (0.5-1.4) mg/dL Estim Creat Clear Calc 56.9 Estimated GFR > 60 Random Glucose 95 (60-115) mg/dL Lactic Acid 0.8 (0.5-2.0) mmol/L Calcium 9.2 D (8.4-10.2) mg/dL Total Bilirubin 0.5 (0.0-1.0) mg/dL AST 33 (5-37) U/L ALT 18 (0-40) U/L Alkaline Phosphatase 97 (39-117) U/L Total Protein 7.1 (6.5-8.0) g/dL Albumin 3.7 (3.5-5.0) g/dL Lipase 24 (8-78) U/L Urine Color Yellow Urine Appearance Clear Urine pH 5.5 (5.0-9.0) Ur Specific [place] 1.010 (1.005-1.025) Urine Protein Negative (Neg-Trace) mg/dL Urine Glucose (UA) Negative (Negative) mg/dL Urine Ketones Negative (Negative) mg/dL Urine Blood Negative (Negative) Urine Nitrite Negative (Negative) Ur Leukocyte Esterase Negative (Negative) Independent Interpretation I performed an independent interpretation of an: CT Scan Radiology Impression Discussion of test interpretation with radiology: I have reviewed the radiologist's reading. Radiologist Impression: 1. No incarcerated hernia as clinically questioned. Bilateral fat containing inguinal hernias. There is a loop of colon which is adjacent to the right inguinal hernia opening although not within the hernia proper. 2. Nonobstructing bilateral renal calculi. 3. Cholelithiasis without CT evidence of acute cholecystitis. 4. Emphysema in the partially imaged lung bases. Pulmonary nodule in the right middle lobe is partially imaged measuring up to 4 mm. Given the background emphysema, follow-up CT can be performed for further screening of the remainder of the lungs if not performed within the past year. 5. 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 As with all adenomas, consider biochemical testing if there is concern for hyperfunction. 6. Additional findings as described. Discharge Plan Discharge Clinical Impression: Inguinal hernia Patient Disposition: Home, Self-Care Instructions: Inguinal Hernia (ED) Additional Instructions: Please follow-up with your primary care physician tomorrow. If you have any worsening or new symptoms, please return to the emergency room or call 911 Prescriptions: No Action mirtazapine 15 mg tablet 15 mg PO BEDTIME 90 Days Qty: 90 2RF doxazosin 4 mg tablet 4 mg PO TID 90 Days Qty: 270 3RF Rx Instructions: Take 4 mg in a.m. and 8 mg in p.m. pravastatin 20 mg tablet 20 mg PO DAILY Qty: 90 1RF irbesartan 150 mg tablet 150 mg PO DAILY 90 Days Qty: 90 1RF latanoprost 0.005 % drops 1 drp ophthalmic (eye) QPM [place] 0.02-0.005 % drops ophthalmic (eye) dorzolamide-timolol 22.3-6.8 mg/mL drops 1 drp ophthalmic (eye) finasteride 5 mg tablet 5 mg PO DAILY 90 Days Qty: 90 1RF cholecalciferol (vitamin D3) [Vitamin D3] 50 mcg (2,000 unit) tablet 50 mcg PO DAILY 90 Days Qty: 90 1RF Print Language: Slovenian
[2024-04-02 05:35] VITALS: BP 139/59; PULSE 54; RESP 18; TEMP 36.4; O2SAT 97
--- NOTE | 2024-04-02 05:48 | MHC.EDTECH ---
Patient refused to get into gown,T/W made multiple attempts,RN aware
[2024-04-02 05:55] LABS: Appearance Urine Clear; Color Urine Yellow; Glucose Urine UA Negative (Negative); Leukocyte Esterase Urine Negative (Negative); Nitrite Urine Negative (Negative); PH 5.5 (5.0-9.0); Urine Blood Negative (Negative); Urine Ketones Negative (Negative); Urine Protein Negative (Neg-Trace)
[2024-04-02 07:27] VITALS: BP 135/64; PULSE 66; RESP 16; TEMP 36.3
== END 2024-04-02 07:28 | disposition home or self-care (01) ==
PROVIDERS: Nurse Practitioner Family; Emergency Provider Emergency Medicine; PCP Physician Assistant
DX: K40.90 Unilateral inguinal hernia, without obstruction or gangrene, not specified as recurrent (principal); R10.2 Pelvic and perineal pain; Z79.899 Other long term (current) drug therapy; Z87.891 Personal history of nicotine dependence
CPT/HCPCS: 36415; 74176; 80053; 81003; 83605; 83690; 85025; 85610; 99284

== ENCOUNTER → 2024-04-02 04:43 | Outpatient (BNV) | payer OTHER, SELFPAY | PROVIDERS: Emergency Provider Emergency Medicine; PCP Physician Assistant; Visit Provider Radiology Diagnostic Radiology | DX: K40.20 Bilateral inguinal hernia, without obstruction or gangrene, not specified as recurrent (principal); N20.0 Calculus of kidney; J43.8 Other emphysema; D35.01 Benign neoplasm of right adrenal gland | CPT/HCPCS: 74176 ==

== ENCOUNTER → 2024-04-03 09:04 | Outpatient (BNVA) | payer OTHER, SELFPAY | PROVIDERS: PCP Physician Assistant; Visit Provider Surgery ==

== ENCOUNTER 2024-04-05 10:29 | Day surgery (SDC) | payer MEDICARE, SELFPAY ==
[2024-04-05 07:25] VITALS: BMI 24.1
[2024-04-05 10:31] VITALS: BP 142/67; PULSE 73; RESP 20; TEMP 36.4; O2SAT 96; BMI 24.3
--- NOTE | 2024-04-05 10:41 | MHC.SHP ---
Pre-Procedural Eval Section A - 24 Hr Update-Section A only Date of Service: 04/05/24 The patient is an INPATIENT: No Changes since office visit: No Cold of Flu in the past 2 weeks, No New Medical Problems, No Changes in Medication and No Patient answered all questions The patient has been examined within 24 hours of the surgical procedure. The History & Physical has been completed within 30 days and I have reviewed it.: Yes Section B - Complete if H&P > 30 days Chief Complaint: Unilateral inguinal hernia, without obstruction Allergies: Allergies Allergy/AdvReac Type Severity Reaction Status Date / Time No Known Allergies Allergy Verified 04/03/24 09:20 Plan I have reviewed the history and physical and performed a pertinent physical examination on my patient. No changes have occurred unless specified. Time Spent With Patient Time: Total time managing care of this patient today ____ minutes.
[2024-04-05] MEDS: Lactated Ringers 1,000 ML 100 ML IVCONT (10:54)
--- NOTE | 2024-04-05 11:10 | HO.ANESPROP2 ---
Documented by User: Grace Champagne NP 04/03/24 14:42 HPI - Anesthesia Eval Consult details Narrative: 84yo M for Right Repair Hernia Inguinal Reducible with mesh PMFSH Active Problems Active Problems: All Active Problems Reducible right inguinal hernia (Acute) Inguinal hernia (Acute) Anemia (Acute) ALESSANDRA (obstructive sleep apnea) (Acute) Annual physical exam (Acute) Lumbar disc disease (Acute) Glaucoma (Acute) COPD (chronic obstructive pulmonary disease) (Acute) Hypertension (Acute) BPH (benign prostatic hyperplasia) (Acute) HLD (hyperlipidemia) (Acute) Past Medical History Medical History (Updated 04/03/24 @ 09:49 by Dion Ratliff MD) Reducible right inguinal hernia Skin cancer Hearing problem Hypertension Depression COPD (chronic obstructive pulmonary disease) Chronic back pain Surgical History Surgical History (Updated 04/05/24 @ 10:51 by Vashti Muller RN) Hx of wisdom tooth extraction Hx of colonoscopy No pertinent past surgical history Social History Social History Housing: Apartment Patient Tobacco Use Status: Former Tobacco user Tobacco use type: Cigarette e-Cigarette/Vaping Use: Never Used Have you been hit, kicked, punched, or otherwise hurt by someone within the past year? If so, by whom?: No Are you DNR?: No Advance Directives: No Advance Directives Information Provided: Yes service: Yes Current occupational status: retired Cognitive needs: No Hearing needs: Yes (hearing problems from both ears.) Vision needs: Yes Meds Allergies Allergy/AdvReac Type Severity Reaction Status Date / Time No Known Allergies Allergy Verified 04/03/24 09:20 Home Medications ?Medication ?Instructions ?Recorded ?Confirmed ?Last Taken ?Type dorzolamide 22.3 mg-timolol 6.8 1 drp ophthalmic (eye) 03/14/23 04/01/24 04/05/24 History mg/mL eye drops latanoprost 0.005 % eye drops 1 drp ophthalmic (eye) QPM 03/14/23 04/01/24 04/05/24 History netarsudil 0.02 %-latanoprost drp ophthalmic (eye) 03/14/23 04/01/24 04/05/24 History 0.005 % eye drops ([place]) Exam Pertinent Lab Results Pertinent Lab Results: Laboratory Tests 04/02/24 01:44 WBC 6.2 Hgb 13.3 L Hct 39.0 L Plt Count 124 L Sodium 143 Potassium 4.2 Chloride 111 H Carbon Dioxide 24 BUN 31 H Creatinine 0.84 Assessment and Plan Assessment Anesthesia Assessment: Chart Reviewed Documented by User: Nicole Swenson, DO 04/05/24 11:55 PMFSH Past Medical History Medical History (Updated 04/03/24 @ 09:49 by Dion Ratliff MD) Reducible right inguinal hernia Skin cancer Hearing problem Hypertension Depression COPD (chronic obstructive pulmonary disease) Chronic back pain Family History Family history of problems with anesthesia: No Surgical History Surgical History (Updated 04/05/24 @ 10:51 by Vashti Muller RN) Hx of wisdom tooth extraction Hx of colonoscopy No pertinent past surgical history History of Problems with Anesthesia: No Social History Social History Housing: Apartment Patient Tobacco Use Status: Former Tobacco user Tobacco use type: Cigarette e-Cigarette/Vaping Use: Never Used Have you been hit, kicked, punched, or otherwise hurt by someone within the past year? If so, by whom?: No Are you DNR?: No Advance Directives: No Advance Directives Information Provided: Yes service: Yes Current occupational status: retired Cognitive needs: No Hearing needs: Yes (hearing problems from both ears.) Vision needs: Yes Meds Allergies Allergy/AdvReac Type Severity Reaction Status Date / Time No Known Allergies Allergy Verified 04/03/24 09:20 Home Medications ?Medication ?Instructions ?Recorded ?Confirmed ?Last Taken ?Type dorzolamide 22.3 mg-timolol 6.8 1 drp ophthalmic (eye) 03/14/23 04/01/24 04/05/24 History mg/mL eye drops latanoprost 0.005 % eye drops 1 drp ophthalmic (eye) QPM 03/14/23 04/01/24 04/05/24 History netarsudil 0.02 %-latanoprost drp ophthalmic (eye) 03/14/23 04/01/24 04/05/24 History 0.005 % eye drops ([place]an) Exam Exam Date and Time: 04/05/24 1110 Height,Weight and Vital Signs: Height 5 ft 5 in Weight 66.23 kg Vital Signs Temperature 97.5 F 04/05/24 10:31 Pulse Rate 73 04/05/24 10:31 Respiratory Rate 20 04/05/24 10:31 Blood Pressure 142/67 H 04/05/24 10:31 Pulse Oximetry 96 04/05/24 10:31 Oxygen Delivery Method Room Air 04/05/24 10:31 Temperature 97.5 F 04/05/24 10:31 Pulse Rate 73 04/05/24 10:31 Respiratory Rate 20 04/05/24 10:31 Blood Pressure 142/67 H 04/05/24 10:31 Pulse Oximetry 96 04/05/24 10:31 Oxygen Delivery Method Room Air 04/05/24 10:31 Airway Mallampati Class: II TM Dist: >3cm Neck ROM: Full Loose/Missing/Broken Teeth: Yes (multiple missing teeth but patient denies any loose or broken teeth) Heart: S1S2 Lungs: CTAB Assessment and Plan Assessment Anesthesia Assessment: Anesthesia Plan Discussed and Chart Reviewed Final Anesthetic Review Family History of Problems with Anesthesia: No History of Problems with Anesthesia: No NPO: Yes ASA Class: II Final Preanesthetic Review: No Changes in Pt Med Stat, Meds/Allgs Chart Reviewed, Consent Obtained/Reviewed and Anes Risks/Benef Reviewed Patient Risk: Low Procedure Risk: Low Anesthetic Plan Anesthetic Plan: GA and Agree w/ Assess. and Plan Disposition: Standard PACU
--- NOTE | 2024-04-05 12:57 | P.OP_ITS ---
Operative Note Operative Note Date of Service: 04/05/24 Narrative: Preop diagnosis: Right inguinal hernia, reducible Postop diagnosis: Right inguinal hernia, reducible, indirect Procedure: Repair of a right inguinal hernia with mesh Surgeon: Dion Ratliff MD career services assistant: STONE Serna The patient is an 84-year-old male with note of reducible mass in the right groin. This appeared to consist of bowel as well whenever this is protruding. He has had discomfort and repeated episodes of the hernia causing pain so he wanted to proceed with repair as soon as he could He understood the technique of the planned procedure as well as the risks, benefits, and alternatives. He was brought to the operating room. He was placed supine under general anesthesia via laryngeal mask airway. The right groin was prepped and draped in the usual sterile fashion. A surgical time-out was done. The patient received cefazolin 2 g IV preoperatively . I infiltrated the planned line of incision with lidocaine 1%. I made a short incision on the skin along an imaginary line from the anterior superior iliac spine to the pubic ramus with a blade 15. This carried down with electrocautery through the full-thickness of the skin and subcutaneous fat down to the external oblique aponeurosis. I bluntly dissected the aponeurosis to find the external ring. I then made an incision on the external oblique aponeurosis with a blade 15. This was extended inferomedially to connect with the external ring. Hemostats were applied on the incised edges of the external oblique aponeurosis. I then bluntly dissected the underside of the aponeurosis to create a pocket for the mesh. I proceeded to do blunt dissection of the spermatic cord and its contents with my index finger until was able to pass a [place] drain around this. This Hu drain was used for retraction. I identified the vas deferens and the accompanying vessels. I was able to then identify the hernia sac along with fatty contents. I bluntly dissected the sac off of the rest of the cord contents until I was able to reduce this completely through the internal ring. The sac need not contain any bowel loops. This contained what appeared to be omental fat. This was an indirect hernia. I reinforced the internal ring with a small-sized Prolene plug. The plug was secured with Prolene 2 sutures to the shelving edge of the inguinal meant laterally, the internal oblique superiorly and medially using the inner leaves of the plug I then positioned a keyhole mesh on the floor of the canal. The tails of the mesh were passed around the cord at the level of the internal ring and were secured together with Prolene 2 sutures. I flattened the mesh. I secured the mesh with Prolene 2 sutures to the shelving edge of the inguinal meant laterally, the internal oblique superiorly and medially as well as the ramus inferomedially I irrigated and removed the [place] drain. Once hemostasis was confirmed, I proceeded to then reapposed the divided external oblique aponeurosis with a running Polysorb 2-0 stitch to re-create the external ring The subcutaneous layer was reapposed with Polysorb 3-0 simple interrupted sutures. Skin closure was achieved with Polysorb 4-0 subcuticular running stitch. The incision was infiltrated with Marcaine 0.5% for postop analgesia. Dressings were applied. The procedure was completed The patient tolerated the procedure well. There were no immediate complicat ions. Initial and final counts of sponges and instruments were correct. Estimated blood loss was less than 25 cc . The patient was extubated without difficulty and transferred to the recovery room with stable vital signs.
[2024-04-05 13:24] VITALS: BP 143/60; PULSE 47; RESP 18; TEMP 36.8; O2SAT 100
[2024-04-05 13:29] VITALS: BP 139/49; PULSE 48; RESP 18; O2SAT 98
[2024-04-05 13:34] VITALS: BP 141/56; PULSE 48; RESP 18; O2SAT 98
[2024-04-05 13:39] VITALS: BP 138/53; PULSE 48; RESP 18; O2SAT 99
== END 2024-04-05 14:08 | disposition home or self-care (01) ==
PROVIDERS: PCP Physician Assistant; Visit Provider Surgery
PROC: (CPT 49505; principal; 2024-04-05 13:00)
DX: K40.90 Unilateral inguinal hernia, without obstruction or gangrene, not specified as recurrent (principal); G89.29 Other chronic pain; M54.9 Dorsalgia, unspecified; I10 Essential (primary) hypertension; C44.91 Basal cell carcinoma of skin, unspecified; J44.9 Chronic obstructive pulmonary disease, unspecified; H91.93 Unspecified hearing loss, bilateral; F32.A Depression, unspecified; Z87.891 Personal history of nicotine dependence; Z99.89 Dependence on other enabling machines and devices; Z79.899 Other long term (current) drug therapy
CPT/HCPCS: 49505; C1781; J0131; J0690; J1100; J2003; J2405; J2704; J2795; J3010

== ENCOUNTER → 2024-04-05 10:29 | Outpatient (BNV) | payer MEDICARE, SELFPAY | PROVIDERS: PCP Physician Assistant; Visit Provider Surgery | DX: K40.90 Unilateral inguinal hernia, without obstruction or gangrene, not specified as recurrent (principal) | CPT/HCPCS: 49505 ==

== ENCOUNTER → 2024-04-18 08:51 | Outpatient (REF) | payer MEDICARE, SELFPAY | LOC: HO.SL 08:51 | PROVIDERS: PCP Physician Assistant; Visit Provider Physician Assistant | DX: G47.33 Obstructive sleep apnea (adult) (pediatric) (principal) | CPT/HCPCS: 95806 ==

== ENCOUNTER → 2024-04-18 09:08 | Outpatient (BNV) | payer MEDICARE, SELFPAY | PROVIDERS: PCP Physician Assistant; Visit Provider Internal Medicine | DX: G47.33 Obstructive sleep apnea (adult) (pediatric) (principal) | CPT/HCPCS: 95806 ==

== ENCOUNTER 2024-04-22 11:21 | Outpatient (AMB) | payer MEDICARE, SELFPAY ==
--- NOTE | 2024-04-22 11:21 | A.OFFVIS_ITS ---
Vital Signs 04/22/24 11:22 Height 5 ft 5 in Weight 151 lb BMI 25.1 Intake Visit Reasons: S/P RIH w/mesh Intake Note: This patient presents for post-op assessment status post right inguinal hernia repair with mesh. Pt c/o; reports no complaints pertaining to surgery. Home Visits Nurse Required: No Accompanied by: Self / Same As Patient Allergies No Known Allergies Allergy (Verified 04/22/24 11:25) HPI HPI S/P RIH w/mesh: Details: He underwent repair of a right inguinal hernia with mesh last 04/05/2024. He tolerated the procedure well. He currently denies significant complaints. [facility] Medical History Reducible right inguinal hernia Skin cancer Hearing problem Hypertension Depression COPD (chronic obstructive pulmonary disease) Chronic back pain Surgical History History of right inguinal hernia repair (~04/05/24) Hx of wisdom tooth extraction Hx of colonoscopy No pertinent past surgical history Social History Housing: Apartment Patient Tobacco Use Status: Former Tobacco user Tobacco use type: Cigarette e-Cigarette/Vaping Use: Never Used service: Yes Current occupational status: retired Cognitive needs: No Hearing needs: Yes (hearing problems from both ears.) Vision needs: Yes Review of Systems Const Denies chills and Denies fever(s) Resp Denies cough GI Denies abdominal pain Physical Exam Const General: comfortable and no acute distress Resp Effort & Inspection: normal respiratory effort GI Other: Left inguinal hernia repair site is well healed, not infected, repair intact Assessment & Plan Assessment & Plan (1) Reducible right inguinal hernia: Code(s): K40.90 - Unilateral inguinal hernia, without obstruction or gangrene, not specified as recurrent Category: Medical Plan: Status post repair of a right hernia with mesh. He is doing very well postoperatively. The repair site is well healed and is intact I advised him to avoid lifting anything more than 20 lb for about 2 more weeks. He can otherwise follow up on a p.r.n. basis Coding Level of Care Code Global (85834) Diagnoses Reducible right inguinal hernia K40.90
[2024-04-22 11:22] VITALS: BMI 25.1
== END 2024-04-22 11:28 | disposition home or self-care (01) ==
PROVIDERS: PCP Physician Assistant; Visit Provider Surgery
DX: K40.90 Unilateral inguinal hernia, without obstruction or gangrene, not specified as recurrent (principal)
CPT/HCPCS: 99024

== ENCOUNTER → 2024-04-22 11:21 | Outpatient (BNVA) | payer MEDICARE, SELFPAY | PROVIDERS: PCP Physician Assistant; Visit Provider Surgery | DX: K40.90 Unilateral inguinal hernia, without obstruction or gangrene, not specified as recurrent (principal); Z98.890 Other specified postprocedural states | CPT/HCPCS: 99212 ==

== ENCOUNTER 2024-07-08 06:04 | Outpatient (REF) | payer MEDICARE, SELFPAY ==
[2024-07-08 07:19] LABS: Hematocrit 36.5 % (42.0-52.0); Hemoglobin 12.1 g/dl (14.0-18.0); Mean Corpuscular HGB Conc 33.2 g/dl (31.0-36.0); Mean Corpuscular Hemoglobin 31.5 pg (27.0-33.0); Mean Corpuscular Volume 95.1 fL (80.0-98.0); Mean Platelet Volume 11.1 fL (9.4-12.4); Platelet Count 139 X10*3/uL (160-400); Red Blood Count 3.84 X10*6/uL (4.60-5.80); Red Cell Distribution Width 14.5 % (11.0-16.0); White Blood Count 4.8 X10*3/uL (4.8-10.8)
[2024-07-08 07:44] LABS: Creatinine Urine 64.83 mg/dL; Microalbum/Creatinine Ratio Ur 12.3 ug/mg cr (<30)
[2024-07-08 07:48] LABS: Alanine Aminotransferase 22 U/L (0-40); Albumin Level 3.7 g/dL (3.5-5.0); Anion Gap 10 (12-20); Aspartate Amino Transferase 34 U/L (5-37); Bilirubin Total 0.5 mg/dL (0.0-1.0); Blood Urea Nitrogen 42 mg/dL (9-16); Calcium 8.9 mg/dL (8.4-10.2); Carbon Dioxide 24 mmol/L (22-29); Chloride 111 mmol/L (96-108); Cholesterol 107 mg/dL (<200); Estimated Glomerular Filt Rate > 60; Glucose Fasting 92 mg/dL (60-99); HDL Cholesterol 51 mg/dL (>40); Iron 42 mcg/dL (45-160); LDL Cholesterol Calculated 48 mg/dL (<100); Percent Iron Saturation 26 % (15-50); Potassium 4.3 mmol/L (3.3-5.1); Sodium 141 mmol/L (135-145); Total Iron Binding Capacity 164 mcg/dL (228-428); Total Protein 6.5 g/dL (6.5-8.0); Triglycerides 41 mg/dL (<150); Unsaturated Iron Binding 122 ug/dL
[2024-07-08 08:00] LABS: Alkaline Phosphatase 105 U/L (39-117)
[2024-07-08 08:18] LABS: Folate 13.7 ng/mL (> or = 4.0); Prostate Specific Antigen Scr 0.98 ng/mL (<0.05-4.0); Vitamin B12 680 pg/mL (200-900)
== END 2024-07-08 06:05 | disposition home or self-care (01) ==
LOC: HO.LAB 06:04
PROVIDERS: PCP Physician Assistant; Visit Provider Physician Assistant
DX: I10 Essential (primary) hypertension (principal); E78.2 Mixed hyperlipidemia; E53.8 Deficiency of other specified B group vitamins; D64.9 Anemia, unspecified; D50.9 Iron deficiency anemia, unspecified; Z12.5 Encounter for screening for malignant neoplasm of prostate; N40.1 Benign prostatic hyperplasia with lower urinary tract symptoms
CPT/HCPCS: 36415; 80053; 80061; 82043; 82570; 82607; 82746; 83540; 84153; 85027

== ENCOUNTER 2024-07-16 09:38 | Outpatient (AMB) | payer OTHER, SELFPAY ==
--- NOTE | 2024-07-16 09:40 | MHC.PC.OV ---
Vital Signs 07/16/24 09:52 07/16/24 10:24 Height 5 ft 5 in Weight 150 lb BMI 25.0 BP 150/66 H 140/58 H Blood Pressure Location Lt brachial Position Sitting Pulse 41 L Pulse Source Pulse Oximeter Temp 97.1 F Temp Source Temporal Artery Scan Pulse Oximetry (%) 99 Oxygen Delivery Method Room Air Intake Visit Reasons: Annual Exam Intake Note: Patient is here for a physical exam and surgical clearance for upcoming cataract surgery: Left eye (IOL/iStent OS) scheduled for August 02, 2024, Right eye (IOL/iStent OD) scheduled for August 16, 2024. Fax number for documentation: [phone]. 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 Accompanied by: Self / Same As Patient Allergies No Known Allergies Allergy (Verified 07/16/24 10:15) Medication List - Last Reconciled 07/16/24 by Julián Umanzor PA-C brimonidine 0.2% drps ophthalmic (eye) cholecalciferol (vitamin D3) (Vitamin D3) 50 mcg PO DAILY 90 days CPAP (CPAP Machine/Device) Need for BIPAP setting +16/ 12cmh w/ backup rate of 14, Resmed P-10Lg, Heated Humidifier dorzolamide 2% drps ophthalmic (eye) dorzolamide-timolol 22.3-6.8 mg/mL 1 drp ophthalmic (eye) doxazosin 4 mg PO TID 90 days finasteride 5 mg PO DAILY 90 days irbesartan 150 mg PO DAILY 90 days latanoprost 0.005% 1 drp ophthalmic (eye) QPM mirtazapine 15 mg PO BEDTIME 90 days pravastatin 20 mg PO DAILY timolol maleate 0.5% drps ophthalmic (eye) Tobacco use date assessed: 04/01/24 Dental Screening Dental Screen Date: 04/01/24 HPI Annual Exam HPI Details Patient is an 84-year-old male here today for an annual physical. . Patient has a past medical history significant for hypertension, GLaucoma, ALESSANDRA hyperlipidemia, BPH, pulmonary emphysema, major depressive disorder. Patient is also due for cataract removal on August 02 and needs preop evaluation. Otherwise patient does not have any history of Congestive heart failure, mi or CVA. He is not on any anticoagulation or antiplatelet therapy at this time. .. Hypertension: Blood pressure stable slightly elevated today in office, he believes is due to being a bit anxious/irritated coming into the office today. .. 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 .. COPD: Was a former smoker though quit 20 years ago. He reports he was a 30 pack year smoker. He denies any exacerbations or coughing fits. Does have some shortness of breath on exertion at times though relates this to his pain in his lower back when ambulating. .. Hyperlipidemia: Continues on pravastatin 20 mg without side effect. Will recheck fasting lipids to assure appropriate total cholesterol and LDL. .. Obstructive sleep apnea: Uses CPAP machine quite regularly. Does use mirtazapine at night to help him fall asleep. He generally does not have a diagnosis of depression. .. Lumbar spine pain(chronic)- has had chronic lumbar spine issues for the past several years. Does use a stand-up walker that significantly helps reduce his pain while ambulating. He reports he has done physical therapy and tried injections in the past though have not been helpful. He is satisfied with using stand-up walker. Colorectal cancer screening: no Further colonoscopies Vaccines: Up-to-date with COVID vaccine, pneumonia vaccine, flu vaccine and RSV vaccine, considering tetanus vaccine Laboratory Tests 04/02/24 07/08/24 01:44 06:19 RBC 4.25 L 3.84 L Hgb 13.3 L 12.1 L Plt Count 139 L BUN 42 H Creatinine 0.86 Iron 42 L Cholesterol 107 PSA Screen 0.98 PFSH Medical History Reducible right inguinal hernia Skin cancer Hearing problem Hypertension Depression COPD (chronic obstructive pulmonary disease) Chronic back pain Surgical History History of right inguinal hernia repair (~04/05/24) Hx of wisdom tooth extraction Hx of colonoscopy No pertinent past surgical history Social History Housing: Apartment Patient Tobacco Use Status: Former Tobacco user Tobacco use type: Cigarette e-Cigarette/Vaping Use: Never Used service: Yes Current occupational status: retired Cognitive needs: No Hearing needs: Yes (hearing problems from both ears.) Vision needs: Yes Questionnaire Thrive Questionnaire Date Thrive assessed: 07/09/24 I am a: Patient What is your living situation today?: I have a steady place to live THRIVE Score: 0 QUINCY-7 AMB Questionnaire QUINCY-7 Date QUINCY - 7 assessed: 04/01/24 Source: Developed by Drs. Vinnie Hatch, Dai Buckley, Devan Malave and colleagues, with an educational reg from [employer]. Review of Systems Const Denies body aches, Denies chills, Denies excessive sweating, Denies fatigue, Denies fever(s) and Denies headache(s) Eyes Denies blurry vision ENT Denies dysphagia, Denies vertigo, Denies dizziness, Denies headache(s), Denies hearing loss and Denies tinnitus Card Denies chest pain, Denies chest pain with activity, Denies syncope, Denies irregular heart rhythm and Denies dyspnea Resp Denies chest congestion, Denies cough, Denies hemoptysis, Denies dyspnea and Denies wheezing GI Denies abdominal pain, Denies melena, Denies hematochezia, Denies coffee ground emesis, Denies dysphagia, Denies diarrhea, Denies nausea and Denies vomiting Denies difficulty urinating, Denies dysuria, Denies urinary frequency, Denies urinary hesitancy and Denies urinary urgency Musc Denies arthralgias, Denies limited range of motion, Denies muscle cramps and Denies muscle weakness Skin/Breast Denies rash and Denies skin ulcer Neuro Denies Abnormal speech present, Denies confusion, Denies vertigo, Denies dizziness, Denies syncope, Denies headache(s), Denies memory loss and Denies seizure-like activity Psych Denies anxiety, Denies confusion, Denies depression, Denies memory loss, Denies panic attacks and Denies paranoia Endo Denies excessive sweating, Denies fatigue, Denies flushing, Denies polydipsia and Denies polyuria Aller/Immun Denies wheezing Physical exam (Primary Care) Vital Signs: Last Vital Signs Temp 97.1 F 07/16/24 09:52 Pulse 41 L 07/16/24 09:52 BP 140/58 H 07/16/24 10:24 Pulse Ox 99 07/16/24 09:52 Oxygen Delivery Method Room Air 07/16/24 09:52 BMI result Body Mass Index 25.0 Tobacco/Smoking Status: Tobacco use Status Tobacco use date assessed 04/01/24 07/16/24 09:40 Patient Tobacco Use Status Former Tobacco user 07/16/24 09:40 Tobacco use type Cigarette 07/16/24 09:40 e-Cigarette/Vaping Use Never Used 07/16/24 09:40 Thrive Assessment: Date of Thrive Assessment Date Thrive assessed 07/09/24 07/16/24 09:40 Const General: cooperative, comfortable, no acute distress, alert and awake; No confusion Orientation/consciousness: oriented to person, oriented to place, patient oriented x3 and No confusion HENMT Head: Yes normocephalic Ears: external ears normal and TM's normal bilaterally Face and sinus: No sinus tenderness Mouth: Normal oral and palatal mucosa present and tongue normal Teeth and gingiva: dentition normal and gingiva normal Throat: Yes posterior oropharynx normal, Yes tonsils normal and Yes uvula midline Eyes Conjunctivae: conjunctivae normal Sclerae: sclerae normal Pupils: Equal, round and reactive pupils present EOM: EOMs intact bilaterally Direct Ophthalmoscopy: No no photophobia Neck Neck: Yes no lymphadenopathy, No tender and Yes no JVD Thyroid: Thyroid normal Carotids: no bruits Chest Chest palpation & inspection: no tenderness Resp Effort & Inspection: normal respiratory effort, no audible wheezes, not labored and no stridor Auscultation: no crackles, no rales, no rhonchi and no wheezes Cardio Jugular venous distension: no JVD Rate: regular rate, not bradycardic and not tachycardic Rhythm: regular rhythm Bruits: no carotid bruits Peripheral pulses: Peripheral pulses 2+ throughout GI Inspection: Yes normal to inspection, No abdominal wall ecchymosis and No visible herniation Palpation (GI): Soft to palpation, nontender, no guarding, not rigid and No hepatosplenomegaly present Auscultation: normoactive bowel sounds General: Yes no CVA tenderness Back/Spine/Pelvis Back: no CVA tenderness and No back tenderness Cervical Spine: cervical ROM normal Thoracic/Lumbar Spine: thoracic and lumbar spine normal to inspection, straight leg raise negative bilaterally, No thoraco-lumbar ROM limited and No lumbar spinal tenderness Skin Lesions: no lesions Rashes: no rashes Wounds: no wounds Neuro General: oriented to person, oriented to place, patient oriented x3, CN's II-XI intact bilaterally and No confusion Cranial nerves: Yes Equal, round and reactive pupils present and Yes Normal accommodation reflex present Cognition (Neuro): normal cognition Speech: No Abnormal speech present Gait exam (Neuro): Normal gait present Motor exam (neuro): 5/5 motor strength present throughout Extrem Right upper extremity: full ROM; no cyanosis Left upper extremity: full ROM; no cyanosis Right lower extremity: no edema Left lower extremity: no edema Psych Appearance: grossly normal Mental Status: mental status grossly normal Affect: normal affect Attitude: cooperative Thought process: Normal thought process present Coding Level of Care Code Est Pt Prev Care >65y(62152) Diagnoses Annual physical exam Z00.00 Pre-op evaluation Z01.818 Mixed hyperlipidemia E78.2 Hyperlipidemia type: mixed hyperlipidemia Lumbar disc disease M51.9 Centrilobular emphysema J43.2 COPD type: emphysema Emphysema type: centrilobular Primary hypertension I10 Hypertension type: primary hypertension Anemia, unspecified type D64.9 Anemia type: unspecified type Heart murmur R01.1 Assessment & Plan Assessment & Plan (1) Annual physical exam: Code(s): Z00.00 - Encounter for general adult medical examination without abnormal findings Category: Medical Plan: As per HPI (2) Pre-op evaluation: Code(s): Z01.818 - Encounter for other preprocedural examination Category: Medical Plan: Patient's labs, vitals and recent EKGs stable. Patient is low risk for needed cataract surgery. Patient medically clear for needed cataract removal (3) HLD (hyperlipidemia): Code(s): E78.5 - Hyperlipidemia, unspecified Category: Medical Qualifiers: Hyperlipidemia type: mixed hyperlipidemia Qualified Code(s): E78.2 - Mixed hyperlipidemia Plan: Patient's most recent lipid panel showing excellent control of his total cholesterol and LDL. Will continue current statin therapy with goal LDL to remain below 100 (4) Lumbar disc disease: Code(s): M51.9 - Unspecified thoracic, thoracolumbar and lumbosacral intervertebral disc disorder Category: Medical Plan: Patient continues to have pretty significant lower lumbar spine pain. Has had several back injections and surgeries in the past. He manages with a specialized walker which gives him the ability to be much more mobile. (5) COPD (chronic obstructive pulmonary disease): Code(s): J44.9 - Chronic obstructive pulmonary disease, unspecified Category: Medical Qualifiers: COPD type: emphysema Emphysema type: centrilobular Qualified Code(s): J43.2 - Centrilobular emphysema Plan: Patient's COPD Has been well controlled. Has not had to use any albuterol or maintenance inhalers. (6) Hypertension: Code(s): I10 - Essential (primary) hypertension Category: Medical Qualifiers: Hypertension type: primary hypertension Qualified Code(s): I10 - Essential (primary) hypertension Plan: Patient's blood pressure acceptable today in office. Will continue his current dose of irbesartan with goal blood pressure to remain below 140/90 (7) Anemia: Code(s): D64.9 - Anemia, unspecified Category: Medical Qualifiers: Anemia type: unspecified type Qualified Code(s): D64.9 - Anemia, unspecified Plan: Noted slight anemia most recent labs. Most likely anemia of chronic disease. Will continue to follow CBC. (8) Heart murmur: Code(s): R01.1 - Cardiac murmur, unspecified Category: Medical Plan: Noted slight systolic heart murmur. We did discuss perhaps getting an echocardiogram to evaluate for valvular stenosis though patient will like to hold off and discuss at next appointment. Otherwise no overt signs of heart failure.
[2024-07-16 09:52] VITALS: BP 150/66; PULSE 41; TEMP 36.2; O2SAT 99; BMI 25.0
[2024-07-16 10:24] VITALS: BP 140/58
== END 2024-07-16 10:39 | disposition home or self-care (01) ==
LOC: HO.HMCH 09:39
PROVIDERS: PCP Physician Assistant; Visit Provider Physician Assistant
DX: Z00.00 Encounter for general adult medical examination without abnormal findings (principal); Z01.818 Encounter for other preprocedural examination; E78.2 Mixed hyperlipidemia; M51.9 Unspecified thoracic, thoracolumbar and lumbosacral intervertebral disc disorder; J43.2 Centrilobular emphysema; I10 Essential (primary) hypertension; D64.9 Anemia, unspecified; R01.1 Cardiac murmur, unspecified

== ENCOUNTER → 2024-07-16 09:38 | Outpatient (BNVA) | payer OTHER, SELFPAY | PROVIDERS: PCP Physician Assistant; Visit Provider Physician Assistant | DX: Z13.89 Encounter for screening for other disorder (principal) ==